=== PATIENT | male | born 1960 | race African-American/Black ===

== ENCOUNTER 2021-11-08 10:44 | Observation (INO) | payer OTHER ==
[2021-11-08 10:58] VITALS: BMI 28.1
[2021-11-08] MEDS ORDERED: LABETALOL HCL 5 MG/1 ML (100MG/20 ML VIAL) IVPUSH ONE ×2 (11:18→12:00)
[2021-11-08 12:08] LABS: BASO % 0.8 % (0-2.0); EOS % 1.7 % (0-4.5); HEMATOCRIT 40.5 % (35.4-49); HEMOGLOBIN 14.2 GM/dL (11.7-16.9); LYMPH % 23.9 % (8-40); MCH 35.5 pg (25.7-33.7); MCHC 35.1 g/dl (32.0-35.9); MEAN CELL VOLUME 101.3 fl (80-96); MEAN PLT VOLUME 7.7 fl (7.5-11.1); MONO % 12.1 % (3.8-10.2); NEUT % 61.5 % (42.8-82.8); PLATELET COUNT 245 10^3/uL (134-434); RDW 13.8 % (11.9-15.9); WHITE BLOOD COUNT 4.2 K/mm3 (4.0-10.0)
[2021-11-08 12:10] LABS: PH,URINE 6.5 (5.0-8.0); URINE APPEARANCE CLEAR; URINE BILIRUBIN NEGATIVE (NEGATIVE); URINE COLOR YELLOW; URINE GLUCOSE (UA) NEGATIVE (NEGATIVE); URINE KETONE NEGATIVE (NEGATIVE); URINE LEUK ESTERASE NEGATIVE (NEGATIVE); URINE NITRITE NEGATIVE (NEGATIVE); URINE PROTEIN NEGATIVE (NEGATIVE); URINE UROBILINOGEN 0.2 mg/dL (0.2-1.0)
[2021-11-08 12:38] LABS: CALCIUM 9.3 mg/dL (8.5-10.1)
[2021-11-08 12:39] LABS: BLOOD UREA NITROGEN 10.5 mg/dL (7-18); MAGNESIUM 1.8 mg/dL (1.8-2.4)
[2021-11-08 12:42] LABS: CREATININE 1.2 mg/dL (0.55-1.3)
[2021-11-08 12:43] LABS: BILIRUBIN,TOTAL 1.2 mg/dL (0.2-1)
[2021-11-08 12:44] LABS: TOT PROT 8.2 g/dl (6.4-8.2)
[2021-11-08] MEDS ORDERED: POTASSIUM CHLORIDE TABS 20 MEQ TABLET.ER (FP) PO ONE ×2 (13:03→13:10)
[2021-11-08] MEDS ORDERED: guaiFENesin 200 MG/10 ML 10 ML UNIT-DOSE CUPS PO PRN (17:41)
[2021-11-08] MEDS: SODIUM CHLORIDE 1,000 ML IV SCH (18:51)
[2021-11-09] MEDS: SODIUM CHLORIDE 1,000 ML IV SCH (06:21)
[2021-11-09 08:29] LABS: HEMATOCRIT 41.9 % (35.4-49); HEMOGLOBIN 14.3 GM/dL (11.7-16.9); MCH 34.9 pg (25.7-33.7); MEAN CELL VOLUME 102.6 fl (80-96); MEAN PLT VOLUME 8.3 fl (7.5-11.1); PLATELET COUNT 235 10^3/uL (134-434); RBC 4.09 M/mm3 (4.00-5.60); RDW 14.3 % (11.9-15.9); WHITE BLOOD COUNT 5.7 K/mm3 (4.0-10.0)
[2021-11-09 09:04] LABS: ALBUMIN 3.6 g/dl (3.4-5.0); BLOOD UREA NITROGEN 13.1 mg/dL (7-18)
[2021-11-09 09:05] LABS: MAGNESIUM 2.1 mg/dL (1.8-2.4)
[2021-11-09 09:09] LABS: TOT PROT 7.7 g/dl (6.4-8.2)
[2021-11-09] MEDS: ENOXAPARIN NA (PORCINE) 40 MG/0.4 ML DISP.SYRIN SQ SCH (09:40)
[2021-11-09] MEDS: amLODIPine BESYLATE 5 MG TABLET (FP) PO SCH (09:41)
[2021-11-09] MEDS: FOLIC ACID 1 MG TABLET (FP) PO SCH (09:41)
[2021-11-09] MEDS: THIAMINE HCL 100 MG TABLET (FP) PO SCH (09:41)
[2021-11-09] MEDS: BICTEGRAV/EMTRICIT/TENOFOV (BIKTARVY) 50-200-25 MG TABLET PO SCH (11:11)
[2021-11-09] MEDS: KCL 10 MEQ IVPB 10 MEQ/100 ML INFUS.BAG IVPB SCH ×2 (12:15→13:53)
[2021-11-09] MEDS: LOSARTAN POTASSIUM 50 MG TABLET PO SCH (12:15)
[2021-11-09 18:58] LABS: BLOOD UREA NITROGEN 14.4 mg/dL (7-18); CALCIUM 8.8 mg/dL (8.5-10.1)
[2021-11-09 19:02] LABS: CREATININE 1.1 mg/dL (0.55-1.3)
[2021-11-09] MEDS ORDERED: amLODIPine BESYLATE 5 MG TABLET (FP) PO ONE (23:25)
[2021-11-10] MEDS ORDERED: LOSARTAN POTASSIUM 25 MG TABLET PO ONE ×2 (06:24→12:00)
[2021-11-10 07:34] LABS: HEMATOCRIT 40.1 % (35.4-49); HEMOGLOBIN 13.9 GM/dL (11.7-16.9); MCH 35.7 pg (25.7-33.7); MCHC 34.6 g/dl (32.0-35.9); MEAN PLT VOLUME 7.9 fl (7.5-11.1); PLATELET COUNT 204 10^3/uL (134-434); RDW 13.7 % (11.9-15.9); WHITE BLOOD COUNT 4.3 K/mm3 (4.0-10.0)
[2021-11-10 07:37] LABS: ALBUMIN 3.6 g/dl (3.4-5.0); BLOOD UREA NITROGEN 12.8 mg/dL (7-18)
[2021-11-10 07:42] LABS: TOT PROT 7.4 g/dl (6.4-8.2)
[2021-11-10 07:46] LABS: BILIRUBIN,TOTAL 0.7 mg/dL (0.2-1)
[2021-11-10] MEDS: THIAMINE HCL 100 MG TABLET (FP) PO SCH (09:18)
[2021-11-10] MEDS: LOSARTAN POTASSIUM 50 MG TABLET PO SCH (09:19)
[2021-11-10] MEDS: FOLIC ACID 1 MG TABLET (FP) PO SCH (09:20)
[2021-11-10] MEDS: ENOXAPARIN NA (PORCINE) 40 MG/0.4 ML DISP.SYRIN SQ SCH (09:20)
[2021-11-10] MEDS: BICTEGRAV/EMTRICIT/TENOFOV (BIKTARVY) 50-200-25 MG TABLET PO SCH (09:20)
[2021-11-10] MEDS: amLODIPine BESYLATE 5 MG TABLET (FP) PO SCH (09:20)
[2021-11-10] MEDS: hydrALAZINE HCL 10 MG TABLET PO SCH ×2 (16:05→21:17)
[2021-11-11] MEDS: hydrALAZINE HCL 10 MG TABLET PO SCH ×2 (05:56→14:47)
[2021-11-11] MEDS: BICTEGRAV/EMTRICIT/TENOFOV (BIKTARVY) 50-200-25 MG TABLET PO SCH (10:20)
[2021-11-11] MEDS: THIAMINE HCL 100 MG TABLET (FP) PO SCH (10:21)
[2021-11-11] MEDS: amLODIPine BESYLATE 5 MG TABLET (FP) PO SCH (10:21)
[2021-11-11] MEDS: LOSARTAN POTASSIUM 50 MG TABLET PO SCH (10:21)
[2021-11-11] MEDS: FOLIC ACID 1 MG TABLET (FP) PO SCH (10:21)
[2021-11-11] MEDS: ENOXAPARIN NA (PORCINE) 40 MG/0.4 ML DISP.SYRIN SQ SCH (10:21)
[2021-11-11 10:33] LABS: HEMATOCRIT 41.2 % (35.4-49); HEMOGLOBIN 14.2 GM/dL (11.7-16.9); MCH 35.3 pg (25.7-33.7); MCHC 34.4 g/dl (32.0-35.9); MEAN CELL VOLUME 102.7 fl (80-96); MEAN PLT VOLUME 8.3 fl (7.5-11.1); PLATELET COUNT 216 10^3/uL (134-434); RBC 4.01 M/mm3 (4.00-5.60); WHITE BLOOD COUNT 4.4 K/mm3 (4.0-10.0)
[2021-11-11 10:55] LABS: CALCIUM 9.5 mg/dL (8.5-10.1)
[2021-11-11 10:56] LABS: ALBUMIN 3.8 g/dl (3.4-5.0); BLOOD UREA NITROGEN 12.7 mg/dL (7-18); MAGNESIUM 2.3 mg/dL (1.8-2.4)
[2021-11-11 10:59] LABS: CREATININE 0.9 mg/dL (0.55-1.3)
[2021-11-11 11:00] LABS: TOT PROT 7.7 g/dl (6.4-8.2)
[2021-11-11 11:01] LABS: BILIRUBIN,TOTAL 0.6 mg/dL (0.2-1)
[2021-11-11] MEDS ORDERED: hydrALAZINE HCL 25 MG TABLET (FP) PO ONE (14:47)
[2021-11-11] MEDS ORDERED: hydrALAZINE HCL 25 MG TABLET (FP) PO SCH (14:47)
[2021-11-11] MEDS: hydrALAZINE HCL 50 MG TABLET (FP) PO SCH (21:17)
[2021-11-12] MEDS: hydrALAZINE HCL 50 MG TABLET (FP) PO SCH ×2 (05:49→13:33)
[2021-11-12 08:53] LABS: HEMATOCRIT 42.6 % (35.4-49); HEMOGLOBIN 14.7 GM/dL (11.7-16.9); MCH 35.7 pg (25.7-33.7); MCHC 34.6 g/dl (32.0-35.9); MEAN CELL VOLUME 103.1 fl (80-96); MEAN PLT VOLUME 8.7 fl (7.5-11.1); PLATELET COUNT 257 10^3/uL (134-434); RBC 4.13 M/mm3 (4.00-5.60); WHITE BLOOD COUNT 5.1 K/mm3 (4.0-10.0)
[2021-11-12 09:10] LABS: CALCIUM 9.2 mg/dL (8.5-10.1)
[2021-11-12 09:11] LABS: ALBUMIN 3.9 g/dl (3.4-5.0); BLOOD UREA NITROGEN 16.9 mg/dL (7-18)
[2021-11-12 09:16] LABS: BILIRUBIN,TOTAL 0.4 mg/dL (0.2-1)
[2021-11-12] MEDS: LOSARTAN POTASSIUM 50 MG TABLET PO SCH (10:35)
[2021-11-12] MEDS: THIAMINE HCL 100 MG TABLET (FP) PO SCH (10:35)
[2021-11-12] MEDS: FOLIC ACID 1 MG TABLET (FP) PO SCH (10:35)
[2021-11-12] MEDS: ENOXAPARIN NA (PORCINE) 40 MG/0.4 ML DISP.SYRIN SQ SCH (10:35)
[2021-11-12] MEDS: BICTEGRAV/EMTRICIT/TENOFOV (BIKTARVY) 50-200-25 MG TABLET PO SCH (10:36)
[2021-11-12] MEDS ORDERED: BISACODYL 5 MG TABLET.DR (FP) PO ONE (14:59)
[2021-11-12 15:07] VITALS: BP 162/101; PULSE 76; TEMP 98.6
[2021-11-12] MEDS ORDERED: BISACODYL 10 MG SUPP.RECT PR ONE (15:12)
== END 2021-11-12 16:48 | disposition home or self-care (01) ==
LOC: JER 10:44 → JERBED 15:30 → J6S 22:17
PROVIDERS: ADMIT Internal Medicine; ATTEND Internal Medicine
PROC: 3E023GC Introduction of Other Therapeutic Substance into Muscle, Percutaneous Approach (ICD-10-PCS; principal; 2021-11-08)
PROC: 3E033GC Introduction of Other Therapeutic Substance into Peripheral Vein, Percutaneous Approach (ICD-10-PCS; 2021-11-08)
PROC: 3E0337Z Introduction of Electrolytic and Water Balance Substance into Peripheral Vein, Percutaneous Approach (ICD-10-PCS; 2021-11-08)
DX: I16.0 Hypertensive urgency (principal); R42 Dizziness and giddiness; E87.6 Hypokalemia; F20.9 Schizophrenia, unspecified; Z21 Asymptomatic human immunodeficiency virus [HIV] infection status; E87.1 Hypo-osmolality and hyponatremia; Z93.3 Colostomy status; Z85.038 Personal history of other malignant neoplasm of large intestine; F17.210 Nicotine dependence, cigarettes, uncomplicated
CPT/HCPCS: 36415; 70450-TC; 71045-TC-FY; 71275-TC; 80048; 80053; 81003; 83735; 84484; 85025; 85027; 87804; 93005; 93010; 96361; 96365; 96372; 96375; 96376; 97116-GP; 97161-GP; 99285-25; C9803-CS; G0378; Q9967; U0003; U0005

== ENCOUNTER 2023-06-01 02:25 | Inpatient (IN) | payer OTHER ==
[2023-06-01] MEDS ORDERED: PIPERACILLIN/TAZOB 3.375 GM 3.375 GM in DEXTROSE 5%-WATER - 50 ML IVPB ONE (03:07)
[2023-06-01] MEDS ORDERED: VANCOMYCIN 1,000 MG in DEXTROSE 5%-WATER - 250 ML IVPB ONE (03:07)
[2023-06-01] MEDS ORDERED: SODIUM CHLORIDE 1,000 ML IV STA (03:15)
[2023-06-01] MEDS ORDERED: PIPERACILLIN/TAZOB 3.375 GM 3.375 GM/50 ML BAG IVPB ONE ×3 (03:41→16:49)
[2023-06-01] MEDS ORDERED: VANCOMYCIN 1 GRAM (PRE-DOCKED) 1,000 MG/250 ML BAG IVPB ONE (03:41)
[2023-06-01 03:42] LABS: BASO % 0.3 % (0-2.0); EOS % 0.1 % (0-4.5); HEMATOCRIT 38.1 % (35.4-49); LYMPH % 6.4 % (8-40); MCH 33.7 pg (25.7-33.7); MCHC 34.2 g/dl (32.0-35.9); MEAN CELL VOLUME 98.5 fl (80-96); MEAN PLT VOLUME 7.3 fl (7.5-11.1); MONO % 4.3 % (3.8-10.2); NEUT % 88.9 % (42.8-82.8); PLATELET COUNT 441 10^3/uL (134-434); RBC 3.87 M/mm3 (4.00-5.60); RDW 15.1 % (11.9-15.9)
[2023-06-01 04:15] LABS: INR 1.21 (0.83-1.09)
[2023-06-01 04:18] LABS: ACTIVATED PTT 28.1 SECONDS (25.2-36.5)
[2023-06-01 04:19] LABS: CALCIUM 8.8 mg/dL (8.5-10.1)
[2023-06-01 04:20] LABS: ALBUMIN 3.3 g/dl (3.4-5.0); BLOOD UREA NITROGEN 15.3 mg/dL (7-18)
[2023-06-01 04:23] LABS: CREATININE 0.9 mg/dL (0.55-1.3)
[2023-06-01 04:25] LABS: BILIRUBIN,TOTAL 0.2 mg/dL (0.2-1); TOT PROT 8.2 g/dl (6.4-8.2)
[2023-06-01 04:26] LABS: EPI CELLS 28 /uL (0-25.1); HYALINE CASTS 2 /uL (0-3.1); PH,URINE 5.5 (5.0-8.0); URINE APPEARANCE CLEAR; URINE BACTERIA 9 /uL (0-1359); URINE BILIRUBIN NEGATIVE (NEGATIVE); URINE COLOR DK YELLOW; URINE GLUCOSE (UA) NEGATIVE (NEGATIVE); URINE KETONE NEGATIVE (NEGATIVE); URINE LEUK ESTERASE NEGATIVE (NEGATIVE); URINE NITRITE NEGATIVE (NEGATIVE); URINE PROTEIN NEGATIVE (NEGATIVE); URINE RBC 147 /uL (0-23.9); URINE WBC 19 /uL (0-25.8)
[2023-06-01 05:20] LABS: ARTERIAL BLOOD GAS BASE EXCESS 2.1 mmol/L (-2-2); ARTERIAL BLOOD GAS PO2 160.8 mmHg (80-100); ARTERIAL BLOOD GAS pH 7.395 (7.350-7.450)
[2023-06-01] MEDS ORDERED: ALBUTEROL SO4 2.5/IPRATROPIUM 0.5 INH SOL 3 ML VIAL.NEB. NEB PRN (08:12)
[2023-06-01] MEDS ORDERED: PIPERACILLIN/TAZOB 3.375 GM 3.375 GM in DEXTROSE 5%-WATER - 50 ML IVPB SCH (10:00)
[2023-06-01] MEDS ORDERED: SODIUM CHLORIDE 1,000 ML IV SCH (10:30)
[2023-06-01] MEDS: PIPERACILLIN/TAZOB 3.375 GM 3.375 GM in DEXTROSE 5%-WATER - 50 ML IVPB SCH ×3 (10:55→19:49)
[2023-06-01] MEDS: INSULIN SLIDING SCALE (NOVOLOG) 1 VIAL SQ SCH ×3 (12:38→22:21)
[2023-06-01] MEDS ORDERED: DEXTROSE 5%-NORMAL SALINE 1,000 ML IV SCH (18:15)
[2023-06-01] MEDS ORDERED: ENOXAPARIN NA (PORCINE) 40 MG/0.4 ML DISP.SYRIN SQ ONE (18:17)
[2023-06-01] MEDS: ENOXAPARIN NA (PORCINE) 40 MG/0.4 ML DISP.SYRIN SQ SCH (18:20)
[2023-06-02] MEDS ORDERED: PIPERACILLIN/TAZOB 3.375 GM 3.375 GM/50 ML BAG IVPB ONE ×2 (00:41→09:41)
[2023-06-02] MEDS: PIPERACILLIN/TAZOB 3.375 GM 3.375 GM in DEXTROSE 5%-WATER - 50 ML IVPB SCH ×3 (01:27→20:08)
[2023-06-02 06:44] LABS: BASO % 0.8 % (0-2.0); EOS % 3.4 % (0-4.5); HEMATOCRIT 29.4 % (35.4-49); HEMOGLOBIN 9.9 GM/dL (11.7-16.9); LYMPH % 24.5 % (8-40); MCH 33.8 pg (25.7-33.7); MCHC 33.5 g/dl (32.0-35.9); MEAN PLT VOLUME 7.7 fl (7.5-11.1); MONO % 10.8 % (3.8-10.2); NEUT % 60.5 % (42.8-82.8); PLATELET COUNT 398 10^3/uL (134-434); RBC 2.91 M/mm3 (4.00-5.60); RDW 14.7 % (11.9-15.9); WHITE BLOOD COUNT 7.4 K/mm3 (4.0-10.0)
[2023-06-02] MEDS: INSULIN SLIDING SCALE (NOVOLOG) 1 VIAL SQ SCH ×4 (06:52→22:56)
[2023-06-02] MEDS ORDERED: BICTEGRAV/EMTRICIT/TENOFOV (BIKTARVY) 50-200-25 MG TABLET PO SCH (08:00)
[2023-06-02] MEDS: ENOXAPARIN NA (PORCINE) 40 MG/0.4 ML DISP.SYRIN SQ SCH (09:06)
[2023-06-02] MEDS ORDERED: ALBUTEROL SO4 2.5/IPRATROPIUM 0.5 INH SOL 3 ML VIAL.NEB. NEB ONE ×2 (09:07→14:18)
[2023-06-02] MEDS ORDERED: THIAMINE HCL 100 MG TABLET (FP) ONE (09:07)
[2023-06-02] MEDS ORDERED: FOLIC ACID 1 MG TABLET (FP) ONE (09:07)
[2023-06-02] MEDS: ALBUTEROL SO4 2.5/IPRATROPIUM 0.5 INH SOL 3 ML VIAL.NEB. NEB SCH ×3 (09:15→20:50)
[2023-06-02] MEDS ORDERED: FOLIC ACID 1 MG TABLET (FP) PO SCH (10:00)
[2023-06-02] MEDS ORDERED: THIAMINE HCL 100 MG TABLET (FP) PO SCH (10:00)
[2023-06-02] MEDS ORDERED: ACETAMINOPHEN 1000 MG/100 ML BAG IVPB PRN (10:28)
[2023-06-02] MEDS ORDERED: levETIRAcetam 500 MG/5 ML INJECTION VIAL IVPB ONE (10:44)
[2023-06-02] MEDS: levETIRAcetam 500 MG/5 ML INJECTION VIAL IVPB SCH ×2 (10:51→22:53)
[2023-06-02] MEDS ORDERED: DIVALPROEX SODIUM 500 MG TABLET E.C. PO SCH (11:00)
[2023-06-02] MEDS ORDERED: VALPROATE SODIUM 250 MG/5 ML UNIT DOSE CUP PO SCH (11:23)
[2023-06-02] MEDS ORDERED: PANTOPRAZOLE SODIUM 40 MG VIAL ONE (11:26)
[2023-06-02] MEDS: BICTEGRAV/EMTRICIT/TENOFOV (BIKTARVY) 50-200-25 MG TABLET PO SCH (11:28)
[2023-06-02] MEDS ORDERED: clonazePAM 0.5 MG TABLET ONE (11:29)
[2023-06-02] MEDS: clonazePAM 0.5 MG TABLET GT SCH ×2 (11:41→22:53)
[2023-06-02] MEDS: SODIUM CHLORIDE 1 GM TABLET GT SCH (11:41)
[2023-06-02] MEDS: PANTOPRAZOLE SODIUM 40 MG VIAL IVPUSH SCH (11:41)
[2023-06-02] MEDS: METOPROLOL TARTRATE 25 MG TABLET (FP) GT SCH ×2 (11:41→22:54)
[2023-06-02] MEDS: ARTIFICIAL TEARS (POLYVINYL ALCOHOL) OPTH DROPS OU SCH ×2 (11:42→22:56)
[2023-06-02] MEDS: DOXAZOSIN MESYLATE 1 MG TABLET GT SCH (11:42)
[2023-06-02] MEDS ORDERED: hydrALAZINE HCL 25 MG TABLET (FP) PO SCH (14:00)
[2023-06-02] MEDS ORDERED: ACETAMINOPHEN INJECTION 100 ML IVPB ONE (16:07)
[2023-06-02 18:08] VITALS: BMI 28.5
[2023-06-02] MEDS: VALPROATE SODIUM 250 MG/5 ML UNIT DOSE CUP GT SCH (22:52)
[2023-06-02] MEDS: POLYETHYLENE GLYCOL (HEALTHYLAX) 3350 17 GM PACKET GT SCH (22:54)
[2023-06-03] MEDS: PIPERACILLIN/TAZOB 3.375 GM 3.375 GM in DEXTROSE 5%-WATER - 50 ML IVPB SCH ×3 (01:45→17:33)
[2023-06-03] MEDS: ALBUTEROL SO4 2.5/IPRATROPIUM 0.5 INH SOL 3 ML VIAL.NEB. NEB SCH ×6 (03:29→20:46)
[2023-06-03] MEDS: INSULIN SLIDING SCALE (NOVOLOG) 1 VIAL SQ SCH ×4 (06:35→22:02)
[2023-06-03 09:39] LABS: BASO % 0.8 % (0-2.0); EOS % 4.3 % (0-4.5); HEMOGLOBIN 10.3 GM/dL (11.7-16.9); LYMPH % 31.1 % (8-40); MCH 33.4 pg (25.7-33.7); MCHC 33.3 g/dl (32.0-35.9); MEAN CELL VOLUME 100.2 fl (80-96); MEAN PLT VOLUME 7.8 fl (7.5-11.1); MONO % 10.1 % (3.8-10.2); NEUT % 53.7 % (42.8-82.8); PLATELET COUNT 409 10^3/uL (134-434); RDW 14.5 % (11.9-15.9); WHITE BLOOD COUNT 6.1 K/mm3 (4.0-10.0)
[2023-06-03 10:08] LABS: POTASSIUM 4.1 mmol/L (3.5-5.1)
[2023-06-03 10:14] LABS: BLOOD UREA NITROGEN 11.1 mg/dL (7-18)
[2023-06-03 10:17] LABS: CALCIUM 8.5 mg/dL (8.5-10.1); CREATININE 0.9 mg/dL (0.55-1.3); MAGNESIUM 1.9 mg/dL (1.8-2.4); PHOSPHOROUS 3.8 mg/dL (2.5-4.9)
[2023-06-03] MEDS: PANTOPRAZOLE SODIUM 40 MG VIAL IVPUSH SCH (10:17)
[2023-06-03] MEDS: ENOXAPARIN NA (PORCINE) 40 MG/0.4 ML DISP.SYRIN SQ SCH (10:17)
[2023-06-03] MEDS: BICTEGRAV/EMTRICIT/TENOFOV (BIKTARVY) 50-200-25 MG TABLET PO SCH (10:17)
[2023-06-03] MEDS: FOLIC ACID 1 MG TABLET (FP) GT SCH (10:18)
[2023-06-03] MEDS: THIAMINE HCL 100 MG TABLET (FP) NGT SCH (10:18)
[2023-06-03] MEDS: METOPROLOL TARTRATE 25 MG TABLET (FP) GT SCH ×2 (10:18→22:18)
[2023-06-03] MEDS: clonazePAM 0.5 MG TABLET GT SCH ×2 (10:18→22:02)
[2023-06-03 10:19] LABS: BILIRUBIN,TOTAL 0.7 mg/dL (0.2-1)
[2023-06-03] MEDS: VALPROATE SODIUM 250 MG/5 ML UNIT DOSE CUP GT SCH ×2 (10:19→22:18)
[2023-06-03] MEDS: levETIRAcetam 500 MG/5 ML INJECTION VIAL IVPB SCH ×2 (10:19→22:01)
[2023-06-03] MEDS: SODIUM CHLORIDE 1 GM TABLET GT SCH (10:20)
[2023-06-03] MEDS: ARTIFICIAL TEARS (POLYVINYL ALCOHOL) OPTH DROPS OU SCH ×2 (10:20→21:59)
[2023-06-03 10:21] LABS: TOT PROT 7.4 g/dl (6.4-8.2)
[2023-06-03] MEDS: DOXAZOSIN MESYLATE 1 MG TABLET GT SCH (10:21)
[2023-06-03] MEDS: AMINO ACIDS/PROTEIN HYDROLYS 30 ML LIQUID.PKT GT SCH (17:33)
[2023-06-03] MEDS: POLYETHYLENE GLYCOL (HEALTHYLAX) 3350 17 GM PACKET GT SCH (22:02)
[2023-06-04] MEDS: PIPERACILLIN/TAZOB 3.375 GM 3.375 GM in DEXTROSE 5%-WATER - 50 ML IVPB SCH ×2 (01:23→12:51)
[2023-06-04] MEDS: INSULIN SLIDING SCALE (NOVOLOG) 1 VIAL SQ SCH ×2 (06:23→13:39)
[2023-06-04] MEDS: ALBUTEROL SO4 2.5/IPRATROPIUM 0.5 INH SOL 3 ML VIAL.NEB. NEB SCH ×4 (08:20→20:02)
[2023-06-04 09:22] LABS: BASO % 0.7 % (0-2.0); EOS % 7.6 % (0-4.5); HEMATOCRIT 27.6 % (35.4-49); HEMOGLOBIN 9.6 GM/dL (11.7-16.9); LYMPH % 31.3 % (8-40); MCH 34.3 pg (25.7-33.7); MCHC 34.7 g/dl (32.0-35.9); MEAN CELL VOLUME 98.8 fl (80-96); MEAN PLT VOLUME 7.5 fl (7.5-11.1); NEUT % 47.4 % (42.8-82.8); PLATELET COUNT 350 10^3/uL (134-434); RBC 2.79 M/mm3 (4.00-5.60); RDW 14.7 % (11.9-15.9); WHITE BLOOD COUNT 5.5 K/mm3 (4.0-10.0)
[2023-06-04 09:37] LABS: POTASSIUM 4.3 mmol/L (3.5-5.1)
[2023-06-04 10:12] LABS: ALBUMIN 2.8 g/dl (3.4-5.0); CALCIUM 8.5 mg/dL (8.5-10.1); MAGNESIUM 2.2 mg/dL (1.8-2.4)
[2023-06-04 10:13] LABS: BLOOD UREA NITROGEN 11.4 mg/dL (7-18)
[2023-06-04] MEDS: AMINO ACIDS/PROTEIN HYDROLYS 30 ML LIQUID.PKT GT SCH ×3 (10:13→17:46)
[2023-06-04] MEDS: ARTIFICIAL TEARS (POLYVINYL ALCOHOL) OPTH DROPS OU SCH ×2 (10:14→22:42)
[2023-06-04] MEDS: BICTEGRAV/EMTRICIT/TENOFOV (BIKTARVY) 50-200-25 MG TABLET PO SCH (10:14)
[2023-06-04] MEDS: DOXAZOSIN MESYLATE 1 MG TABLET GT SCH (10:14)
[2023-06-04 10:15] LABS: CREATININE 0.8 mg/dL (0.55-1.3); PHOSPHOROUS 3.7 mg/dL (2.5-4.9)
[2023-06-04] MEDS: MULTIVIT-MINERALS ORAL LIQUID GT SCH (10:15)
[2023-06-04] MEDS: ENOXAPARIN NA (PORCINE) 40 MG/0.4 ML DISP.SYRIN SQ SCH (10:15)
[2023-06-04] MEDS: PANTOPRAZOLE SODIUM 40 MG VIAL IVPUSH SCH (10:15)
[2023-06-04 10:16] LABS: BILIRUBIN,TOTAL 0.3 mg/dL (0.2-1); TOT PROT 7.1 g/dl (6.4-8.2)
[2023-06-04] MEDS: levETIRAcetam 500 MG/5 ML INJECTION VIAL IVPB SCH (10:16)
[2023-06-04] MEDS: SODIUM CHLORIDE 1 GM TABLET GT SCH (10:16)
[2023-06-04] MEDS: clonazePAM 0.5 MG TABLET GT SCH ×2 (10:16→22:44)
[2023-06-04] MEDS: ASCORBIC ACID 250 MG TABLET (FP) GT SCH (10:17)
[2023-06-04] MEDS: THIAMINE HCL 100 MG TABLET (FP) NGT SCH (10:17)
[2023-06-04] MEDS: METOPROLOL TARTRATE 25 MG TABLET (FP) GT SCH ×2 (10:17→22:45)
[2023-06-04] MEDS: FOLIC ACID 1 MG TABLET (FP) GT SCH (10:17)
[2023-06-04] MEDS ORDERED: CEFEPIME HCL 2 GM VIAL (RESTRICTED TO ID) IVPB SCH ×2 (12:27→18:00)
[2023-06-04] MEDS: VALPROATE SODIUM 250 MG/5 ML UNIT DOSE CUP GT SCH ×2 (12:53→22:44)
[2023-06-04] MEDS: CEFEPIME 2 GM in DEXTROSE 5%-WATER 100 ML IVPB SCH ×2 (13:08→17:46)
[2023-06-04] MEDS ORDERED: PATIENT'S OWN MEDICATION (NON-FORMULARY) (Dextran 70/Hypromellose [Artificial Tears] 1 EAC OU SCH (22:00)
[2023-06-04] MEDS ORDERED: PATIENT'S OWN MEDICATION (NON-FORMULARY) (Valproic Acid (As Sodium Salt) [Valproic Acid] 5 PEG SCH (22:00)
[2023-06-04] MEDS: levETIRAcetam 500 MG/5 ML ORAL SOLUTION (UNIT-DOSE CUPS) GT SCH (22:43)
[2023-06-04] MEDS: POLYETHYLENE GLYCOL (HEALTHYLAX) 3350 17 GM PACKET GT SCH (22:44)
[2023-06-05] MEDS: CEFEPIME 2 GM in DEXTROSE 5%-WATER 100 ML IVPB SCH ×2 (01:31→10:25)
[2023-06-05] MEDS: AMINO ACIDS/PROTEIN HYDROLYS 30 ML LIQUID.PKT GT SCH ×3 (08:35→17:16)
[2023-06-05] MEDS: BICTEGRAV/EMTRICIT/TENOFOV (BIKTARVY) 50-200-25 MG TABLET PO SCH (08:35)
[2023-06-05] MEDS: ALBUTEROL SO4 2.5/IPRATROPIUM 0.5 INH SOL 3 ML VIAL.NEB. NEB SCH ×4 (08:45→20:45)
[2023-06-05] MEDS: clonazePAM 0.5 MG TABLET GT SCH ×2 (10:20→22:01)
[2023-06-05] MEDS: SODIUM CHLORIDE 1 GM TABLET GT SCH (10:20)
[2023-06-05] MEDS: levETIRAcetam 500 MG/5 ML ORAL SOLUTION (UNIT-DOSE CUPS) GT SCH ×2 (10:20→21:59)
[2023-06-05] MEDS: ASCORBIC ACID 250 MG TABLET (FP) GT SCH (10:21)
[2023-06-05] MEDS: FOLIC ACID 1 MG TABLET (FP) GT SCH (10:21)
[2023-06-05] MEDS: VALPROATE SODIUM 250 MG/5 ML UNIT DOSE CUP GT SCH ×2 (10:21→21:59)
[2023-06-05] MEDS: METOPROLOL TARTRATE 25 MG TABLET (FP) GT SCH ×2 (10:21→21:59)
[2023-06-05] MEDS: ENOXAPARIN NA (PORCINE) 40 MG/0.4 ML DISP.SYRIN SQ SCH (10:21)
[2023-06-05] MEDS: PANTOPRAZOLE SODIUM 40 MG VIAL IVPUSH SCH (10:21)
[2023-06-05] MEDS: ARTIFICIAL TEARS (POLYVINYL ALCOHOL) OPTH DROPS OU SCH ×2 (10:22→21:59)
[2023-06-05] MEDS: amLODIPine BESYLATE 5 MG TABLET (FP) GT SCH (10:22)
[2023-06-05] MEDS: MULTIVIT-MINERALS ORAL LIQUID GT SCH (10:23)
[2023-06-05] MEDS: THIAMINE HCL 100 MG TABLET (FP) NGT SCH (10:24)
[2023-06-05] MEDS: POLYETHYLENE GLYCOL (HEALTHYLAX) 3350 17 GM PACKET GT SCH (21:59)
[2023-06-06] MEDS ORDERED: levoFLOXacin 750 MG TABLET GT SCH (06:00)
[2023-06-06] MEDS: ALBUTEROL SO4 2.5/IPRATROPIUM 0.5 INH SOL 3 ML VIAL.NEB. NEB SCH ×3 (07:51→15:00)
[2023-06-06] MEDS: AMINO ACIDS/PROTEIN HYDROLYS 30 ML LIQUID.PKT GT SCH ×2 (09:15→12:08)
[2023-06-06] MEDS: BICTEGRAV/EMTRICIT/TENOFOV (BIKTARVY) 50-200-25 MG TABLET PO SCH (09:15)
[2023-06-06] MEDS: amLODIPine BESYLATE 5 MG TABLET (FP) GT SCH (11:12)
[2023-06-06] MEDS: SODIUM CHLORIDE 1 GM TABLET GT SCH (11:12)
[2023-06-06] MEDS: THIAMINE HCL 100 MG TABLET (FP) NGT SCH (11:12)
[2023-06-06] MEDS: FOLIC ACID 1 MG TABLET (FP) GT SCH (11:12)
[2023-06-06] MEDS: METOPROLOL TARTRATE 25 MG TABLET (FP) GT SCH (11:13)
[2023-06-06] MEDS: clonazePAM 0.5 MG TABLET GT SCH (11:13)
[2023-06-06] MEDS: ASCORBIC ACID 250 MG TABLET (FP) GT SCH (11:13)
[2023-06-06] MEDS: MULTIVIT-MINERALS ORAL LIQUID GT SCH (11:14)
[2023-06-06] MEDS: ARTIFICIAL TEARS (POLYVINYL ALCOHOL) OPTH DROPS OU SCH (11:18)
[2023-06-06] MEDS: VALPROATE SODIUM 250 MG/5 ML UNIT DOSE CUP GT SCH (11:22)
[2023-06-06] MEDS: ENOXAPARIN NA (PORCINE) 40 MG/0.4 ML DISP.SYRIN SQ SCH (11:23)
[2023-06-06] MEDS: levETIRAcetam 500 MG/5 ML ORAL SOLUTION (UNIT-DOSE CUPS) GT SCH (11:23)
[2023-06-06] MEDS: PANTOPRAZOLE SODIUM 40 MG VIAL IVPUSH SCH (11:24)
[2023-06-06 14:02] VITALS: RESP 20
[2023-06-06 16:56] VITALS: BP 130/77; PULSE 92; TEMP 98.6
== END 2023-06-06 17:03 | DRG 720 ==
LOC: JER 02:25 → UNDOADMOB 06:08 → JERBED 06:08 → OBSVTOIN 12:04 → INTOOBSV 12:04 → J5S 06-02 17:31 → JERBED 06-02 17:31 → OBSVTOIN 06-03 12:04 → JERBED 06-03 12:04 → J5S 06-03 12:04
PROVIDERS: ADMIT Student in an Organized Health Care Education/Training Program; ATTEND Internal Medicine
PROC: 5A1945Z Respiratory Ventilation, 24-96 Consecutive Hours (ICD-10-PCS; principal; 2023-06-01)
DX: A41.89 Other specified sepsis (principal); J18.9 Pneumonia, unspecified organism; J96.21 Acute and chronic respiratory failure with hypoxia; G40.909 Epilepsy, unspecified, not intractable, without status epilepticus; E11.9 Type 2 diabetes mellitus without complications; N17.9 Acute kidney failure, unspecified; K21.9 Gastro-esophageal reflux disease without esophagitis; J44.9 Chronic obstructive pulmonary disease, unspecified; Z21 Asymptomatic human immunodeficiency virus [HIV] infection status; J44.0 Chronic obstructive pulmonary disease with (acute) lower respiratory infection; F20.89 Other schizophrenia; J98.11 Atelectasis; N41.0 Acute prostatitis; B18.2 Chronic viral hepatitis C; E66.9 Obesity, unspecified; Z68.28 Body mass index [BMI] 28.0-28.9, adult; D72.829 Elevated white blood cell count, unspecified; E87.1 Hypo-osmolality and hyponatremia; F17.210 Nicotine dependence, cigarettes, uncomplicated; R31.29 Other microscopic hematuria; Z85.038 Personal history of other malignant neoplasm of large intestine
CPT/HCPCS: 0241U-QW; 36415; 36600; 71045-TC-FY; 71275-TC; 76775-TC; 80053; 80164; 81003; 82308; 82550; 82553; 82803; 82962; 83605; 83735; 83880; 84100; 84484; 85025; 85610; 85730; 86359; 86360; 86850; 86900; 86901; 87040; 87070; 87081; 87086; 87186; 87205; 87635; 87899; 93005; 93010; 93970-TC; 94002; 94640; 99285-25; Q9967

== ENCOUNTER 2023-06-21 11:44 | Emergency (ER) | payer OTHER ==
[2023-06-21 12:01] VITALS: BMI 23.1
[2023-06-21 12:49] LABS: VENOUS O2 SATURATION 53.1 % (70-80); VENOUS PCO2 56.7 mmHg (38-52); VENOUS PH 7.329 (7.310-7.410)
[2023-06-21 13:01] LABS: BASO % 0.2 % (0-2.0); EOS % 0.3 % (0-4.5); HEMOGLOBIN 11.5 GM/dL (11.7-16.9); LYMPH % 6.8 % (8-40); MCH 34.7 pg (25.7-33.7); MCHC 34.9 g/dl (32.0-35.9); MEAN CELL VOLUME 99.4 fl (80-96); MEAN PLT VOLUME 8.4 fl (7.5-11.1); MONO % 10.9 % (3.8-10.2); NEUT % 81.8 % (42.8-82.8); PLATELET COUNT 305 10^3/uL (134-434); RBC 3.32 M/mm3 (4.00-5.60); RDW 15.5 % (11.9-15.9)
[2023-06-21 13:13] LABS: ARTERIAL BLD GAS O2 SATURATION 99.1 % (95-98); ARTERIAL BLOOD GAS BASE EXCESS 1.7 mmol/L (-2-2); ARTERIAL BLOOD GAS PO2 161.1 mmHg (80-100)
[2023-06-21 13:14] LABS: VENT RATE N
[2023-06-21 13:16] LABS: INR 1.17 (0.83-1.09); PROTHROMBIN TIME (PATIENT) 13.5 SEC (9.7-13.0)
[2023-06-21 13:19] LABS: ACTIVATED PTT 28.4 SECONDS (25.2-36.5)
[2023-06-21 13:22] LABS: POTASSIUM 5.5 mmol/L (3.5-5.1)
[2023-06-21 13:24] LABS: ALBUMIN 3.3 g/dl (3.4-5.0); MAGNESIUM 2.3 mg/dL (1.8-2.4)
[2023-06-21 13:27] LABS: CREATININE 1.1 mg/dL (0.55-1.3)
[2023-06-21 13:28] LABS: BILIRUBIN,TOTAL 0.4 mg/dL (0.2-1); LACTIC ACID 2.2 mmol/L (0.4-2.0)
[2023-06-21 13:32] LABS: N-TERMINAL BNP 115.7 pg/ml (5-125)
[2023-06-21 13:40] LABS: URINE APPEARANCE CLEAR; URINE BILIRUBIN NEGATIVE (NEGATIVE); URINE COLOR YELLOW; URINE GLUCOSE (UA) NEGATIVE (NEGATIVE); URINE KETONE NEGATIVE (NEGATIVE); URINE LEUK ESTERASE NEGATIVE (NEGATIVE); URINE NITRITE NEGATIVE (NEGATIVE); URINE PROTEIN TRACE (NEGATIVE)
[2023-06-21] MEDS ORDERED: LACTATED RINGERS SOLUTION 1000 ML INFUS.BAG IV ONE (13:45)
[2023-06-21] MEDS ORDERED: SODIUM ZIRCONIUM CYCLOSILICATE (LOKELMA) 10 GM PACKET ONE (14:06)
[2023-06-21] MEDS ORDERED: SODIUM ZIRCONIUM CYCLOSILICATE (LOKELMA) 5 GM PACKET PO ONE (14:10)
[2023-06-21 18:18] VITALS: TEMP 98.2
[2023-06-22 01:58] VITALS: BP 116/82; PULSE 70; RESP 16
[2023-06-22] MEDS ORDERED: SODIUM ZIRCONIUM CYCLOSILICATE (LOKELMA) 5 GM PACKET PO ONE (14:00)
== END 2023-06-22 02:10 ==
LOC: JER 11:44
DX: R06.82 Tachypnea, not elsewhere classified (principal); R06.02 Shortness of breath; J95.00 Unspecified tracheostomy complication; Z20.822 Contact with and (suspected) exposure to COVID-19
CPT/HCPCS: 0241U-QW; 36415; 36600; 71045-TC-FY; 80053; 81003; 82803; 83605; 83735; 83880; 84484; 85025; 85610; 85730; 86850; 86900; 86901; 87040; 87070; 87086; 87186; 87205; 93005; 93010; 99285-25

== ENCOUNTER 2023-09-03 14:54 | Emergency (ER) | payer OTHER ==
[2023-09-03 15:40] VITALS: TEMP 97.4; BMI 24.3
[2023-09-03] MEDS: SODIUM CHLORIDE 2,177 ML IV ONE (16:00)
[2023-09-03 16:39] LABS: BASO % 0.3 % (0-2.0); EOS % 0.1 % (0-4.5); HEMATOCRIT 35.2 % (35.4-49); HEMOGLOBIN 12.1 GM/dL (11.7-16.9); LYMPH % 10.7 % (8-40); MCH 34.5 pg (25.7-33.7); MCHC 34.3 g/dl (32.0-35.9); MEAN CELL VOLUME 100.5 fl (80-96); MEAN PLT VOLUME 7.9 fl (7.5-11.1); NEUT % 75.9 % (42.8-82.8); PLATELET COUNT 378 10^3/uL (134-434); RDW 14.3 % (11.9-15.9)
[2023-09-03 16:45] LABS: VENOUS BASE EXCESS 3.1 mmol/L (-2-2); VENOUS O2 SATURATION 43.8 % (70-80); VENOUS PH 7.244 (7.310-7.410)
[2023-09-03 16:47] LABS: INR 1.17 (0.83-1.09); PROTHROMBIN TIME (PATIENT) 13.5 SEC (9.7-13.0)
[2023-09-03 16:47] LABS: VENOUS PCO2 77.8 mmHg (38-52)
[2023-09-03 16:50] LABS: ACTIVATED PTT 30.2 SECONDS (25.2-36.5)
[2023-09-03 16:56] LABS: POTASSIUM 5.5 mmol/L (3.5-5.1)
[2023-09-03 16:58] LABS: CALCIUM 9.3 mg/dL (8.5-10.1)
[2023-09-03 16:59] LABS: ALBUMIN 3.1 g/dl (3.4-5.0); BLOOD UREA NITROGEN 18.8 mg/dL (7-18)
[2023-09-03 17:02] LABS: CREATININE 1.1 mg/dL (0.55-1.3)
[2023-09-03 17:03] LABS: BILIRUBIN,TOTAL 0.2 mg/dL (0.2-1); TOT PROT 8.2 g/dl (6.4-8.2)
[2023-09-03] MEDS ORDERED: CALCIUM GLUCONATE 10% - 1,000 MG/10 ML VIAL ONE (17:33)
[2023-09-03] MEDS ORDERED: SODIUM ZIRCONIUM CYCLOSILICATE (LOKELMA) 10 GM PACKET ONE (17:33)
[2023-09-03] MEDS: SODIUM CHLORIDE 0.9% 500 ML INFUS.BAG IV ONE (17:45)
[2023-09-03] MEDS: CALCIUM GLUCONATE 10% - 1,000 MG/10 ML VIAL IVPUSH ONE (17:45)
[2023-09-03 18:11] LABS: VENOUS BASE EXCESS 3.9 mmol/L (-2-2); VENOUS PH 7.324 (7.310-7.410)
[2023-09-03] MEDS: SODIUM ZIRCONIUM CYCLOSILICATE (LOKELMA) 5 GM PACKET GT ONE (18:17)
[2023-09-03] MEDS: SODIUM ZIRCONIUM CYCLOSILICATE (LOKELMA) 5 GM PACKET PO ONE (18:17)
[2023-09-03 19:03] VITALS: BP 114/78
[2023-09-03 19:40] LABS: POTASSIUM 5.7 mmol/L (3.5-5.1)
[2023-09-03 19:41] LABS: CALCIUM 9.1 mg/dL (8.5-10.1)
[2023-09-03 19:42] LABS: BLOOD UREA NITROGEN 17.8 mg/dL (7-18)
[2023-09-03 19:45] LABS: CREATININE 0.9 mg/dL (0.55-1.3)
[2023-09-03 23:55] VITALS: PULSE 83; RESP 17
== END 2023-09-04 02:55 ==
LOC: JER 14:54
PROC: 3E033GC Introduction of Other Therapeutic Substance into Peripheral Vein, Percutaneous Approach (ICD-10-PCS; principal; 2023-09-03)
DX: J95.00 Unspecified tracheostomy complication (principal); R00.0 Tachycardia, unspecified; R06.82 Tachypnea, not elsewhere classified; Z20.822 Contact with and (suspected) exposure to COVID-19
CPT/HCPCS: 0241U-QW; 36415; 71045-TC-FY; 80048; 80053; 82550; 82803; 83605; 84132; 84484; 85025; 85610; 85730; 86850; 86900; 86901; 87040; 93005; 93010; 96374; 99285-25

== ENCOUNTER 2023-09-08 23:01 | Inpatient (IN) | payer OTHER ==
[2023-09-08] MEDS: ALBUTEROL SO4 2.5/IPRATROPIUM 0.5 INH SOL 3 ML VIAL.NEB. NEB SCH (23:57)
[2023-09-09 00:58] LABS: VENOUS BASE EXCESS -1.3 mmol/L (-2-2); VENOUS O2 SATURATION 87.3 % (70-80)
[2023-09-09 00:59] LABS: BASO % 0.2 % (0-2.0); EOS % 0.1 % (0-4.5); HEMATOCRIT 39.4 % (35.4-49); HEMOGLOBIN 13.2 GM/dL (11.7-16.9); LYMPH % 13.6 % (8-40); MCH 34.1 pg (25.7-33.7); MCHC 33.4 g/dl (32.0-35.9); MEAN CELL VOLUME 102.1 fl (80-96); MONO % 12.2 % (3.8-10.2); NEUT % 73.9 % (42.8-82.8); PLATELET COUNT 220 10^3/uL (134-434); RBC 3.86 M/mm3 (4.00-5.60); WHITE BLOOD COUNT 13.4 K/mm3 (4.0-10.0)
[2023-09-09 01:02] LABS: VENOUS PCO2 79.8 mmHg (38-52); VENOUS PH 7.183 (7.310-7.410)
[2023-09-09 01:26] LABS: ACTIVATED PTT 31.8 SECONDS (25.2-36.5); INR 1.13 (0.83-1.09); PROTHROMBIN TIME (PATIENT) 13.1 SEC (9.7-13.0)
[2023-09-09 01:34] LABS: LACTIC ACID 2.3 mmol/L (0.4-2.0)
[2023-09-09 02:05] LABS: POTASSIUM 5.9 mmol/L (3.5-5.1)
[2023-09-09 02:07] LABS: CALCIUM 9.4 mg/dL (8.5-10.1)
[2023-09-09 02:08] LABS: ALBUMIN 3.3 g/dl (3.4-5.0)
[2023-09-09] MEDS: SODIUM CHLORIDE 0.9% 500 ML INFUS.BAG IV ONE ×2 (02:09→08:39)
[2023-09-09 02:13] LABS: BILIRUBIN,TOTAL 0.2 mg/dL (0.2-1)
[2023-09-09] MEDS ORDERED: ALBUTEROL SO4 2.5/IPRATROPIUM 0.5 INH SOL 3 ML VIAL.NEB. NEB ONE ×3 (04:13→16:09)
[2023-09-09 04:28] LABS: VENOUS BASE EXCESS 0.1 mmol/L (-2-2); VENOUS O2 SATURATION 51.6 % (70-80); VENOUS PH 7.224 (7.310-7.410)
[2023-09-09 04:31] LABS: VENOUS PCO2 72.8 mmHg (38-52)
[2023-09-09 05:01] LABS: CHLORIDE 101 mmol/L (98-107); SODIUM 136 mmol/L (136-145)
[2023-09-09 05:03] LABS: BLOOD UREA NITROGEN 17.3 mg/dL (7-18); CALCIUM 9.4 mg/dL (8.5-10.1); CO2 29 mmol/L (21-32); GLUCOSE,RANDOM 98 mg/dL (74-106)
[2023-09-09 05:13] LABS: ANION GAP 6 mmol/L (4-13); POTASSIUM 6.4 mmol/L (3.5-5.1)
[2023-09-09] MEDS: PIPERACILLIN/TAZOB 4.5 GM 4.5 GM in DEXTROSE 5%-WATER 100 ML IVPB ONE (05:16)
[2023-09-09] MEDS ORDERED: PIPERACILLIN/TAZOB 4.5 GM 4.5 GM/100 ML BAG IVPB ONE ×2 (05:18→15:53)
[2023-09-09] MEDS ORDERED: VANCOMYCIN/WATER 1250 MG 1,250 MG/250 ML BAG IVPB ONE (05:35)
[2023-09-09] MEDS: VANCOMYCIN/WATER 1250 MG 1,250 MG/250 ML BAG IVPB ONE (05:40)
[2023-09-09] MEDS: ALBUTEROL SO4 2.5/IPRATROPIUM 0.5 INH SOL 3 ML VIAL.NEB. NEB ONE (08:48)
[2023-09-09 13:02] LABS: PH,URINE 6.5 (5.0-8.0); URINE APPEARANCE CLEAR; URINE BILIRUBIN NEGATIVE (NEGATIVE); URINE COLOR YELLOW; URINE GLUCOSE (UA) NEGATIVE (NEGATIVE); URINE KETONE NEGATIVE (NEGATIVE); URINE LEUK ESTERASE NEGATIVE (NEGATIVE); URINE NITRITE NEGATIVE (NEGATIVE); URINE PROTEIN NEGATIVE (NEGATIVE); URINE UROBILINOGEN 0.2 mg/dL (0.2-1.0)
[2023-09-09] MEDS: PIPERACILLIN/TAZOB 4.5 GM 4.5 GM in DEXTROSE 5%-WATER 100 ML IVPB SCH (15:54)
[2023-09-09] MEDS: ALBUTEROL SO4 2.5/IPRATROPIUM 0.5 INH SOL 3 ML VIAL.NEB. NEB SCH (16:02)
[2023-09-09 17:03] LABS: ARTERIAL BLD GAS O2 SATURATION 97.5 % (95-98); ARTERIAL BLOOD GAS BASE EXCESS 3.4 mmol/L (-2-2); ARTERIAL BLOOD GAS PO2 93.2 mmHg (80-100); ARTERIAL BLOOD GAS pH 7.462 (7.350-7.450)
[2023-09-09 17:06] LABS: ALLENS TEST POSITIVE
[2023-09-09 17:07] LABS: VENT RATE 20
[2023-09-09] MEDS: INSULIN ASPART SLIDING SCALE (NOVOLOG) 1 VIAL SQ SCH (17:25)
[2023-09-09] MEDS: BICTEGRAV/EMTRICIT/TENOFOV (BIKTARVY) 50-200-25 MG TABLET PO SCH (18:50)
[2023-09-09] MEDS: METOPROLOL TARTRATE 25 MG TABLET (FP) GT SCH (21:45)
[2023-09-09] MEDS: POLYETHYLENE GLYCOL (HEALTHYLAX) 3350 17 GM PACKET GT SCH (21:45)
[2023-09-09] MEDS: VALPROATE SODIUM 250 MG/5 ML UNIT DOSE CUP PEG SCH (21:45)
[2023-09-09] MEDS: clonazePAM 0.5 MG TABLET GT SCH (21:45)
[2023-09-09] MEDS: TAMSULOSIN HCL 0.4 MG CAP PO SCH (21:46)
[2023-09-09] MEDS: FAMOTIDINE 20 MG/2.5 ML ORAL LIQUID GT SCH (23:40)
[2023-09-10 07:31] LABS: HEMATOCRIT 29.4 % (35.4-49); MCH 34.4 pg (25.7-33.7); MCHC 33.9 g/dl (32.0-35.9); MEAN CELL VOLUME 101.3 fl (80-96); MEAN PLT VOLUME 7.3 fl (7.5-11.1); PLATELET COUNT 389 10^3/uL (134-434); RDW 14.7 % (11.9-15.9); WHITE BLOOD COUNT 8.5 K/mm3 (4.0-10.0)
[2023-09-10 08:13] LABS: POTASSIUM 4.4 mmol/L (3.5-5.1)
[2023-09-10 08:23] LABS: ALBUMIN 2.8 g/dl (3.4-5.0); BLOOD UREA NITROGEN 14.1 mg/dL (7-18); CALCIUM 8.5 mg/dL (8.5-10.1); MAGNESIUM 1.9 mg/dL (1.8-2.4)
[2023-09-10 08:26] LABS: CREATININE 0.9 mg/dL (0.55-1.3); PHOSPHOROUS 3.6 mg/dL (2.5-4.9)
[2023-09-10 08:27] LABS: BILIRUBIN,TOTAL 0.4 mg/dL (0.2-1); TOT PROT 7.1 g/dl (6.4-8.2)
[2023-09-10] MEDS ORDERED: PANTOPRAZOLE SOD 40 MG SUSPENSION PACKET PO SCH (10:00)
[2023-09-10] MEDS: ENOXAPARIN NA (PORCINE) 40 MG/0.4 ML DISP.SYRIN SQ SCH (10:48)
[2023-09-10] MEDS: amLODIPine BESYLATE 5 MG TABLET (FP) GT SCH (10:50)
[2023-09-10 13:13] VITALS: BMI 29.5
[2023-09-10] MEDS: AMINO ACIDS/PROTEIN HYDROLYS 30 ML LIQUID.PKT PO SCH (17:46)
[2023-09-11 08:34] LABS: BASO % 0.6 % (0-2.0); EOS % 3.3 % (0-4.5); HEMATOCRIT 31.6 % (35.4-49); HEMOGLOBIN 10.7 GM/dL (11.7-16.9); LYMPH % 40.7 % (8-40); MEAN PLT VOLUME 7.3 fl (7.5-11.1); MONO % 14.8 % (3.8-10.2); NEUT % 40.6 % (42.8-82.8); PLATELET COUNT 412 10^3/uL (134-434); RBC 3.16 M/mm3 (4.00-5.60); RDW 14.7 % (11.9-15.9); WHITE BLOOD COUNT 5.3 K/mm3 (4.0-10.0)
[2023-09-11 08:40] LABS: POTASSIUM 4.1 mmol/L (3.5-5.1)
[2023-09-11 08:43] LABS: CALCIUM 8.9 mg/dL (8.5-10.1)
[2023-09-11 08:44] LABS: ALBUMIN 2.7 g/dl (3.4-5.0); BLOOD UREA NITROGEN 14.5 mg/dL (7-18)
[2023-09-11 08:47] LABS: CREATININE 0.9 mg/dL (0.55-1.3)
[2023-09-11 08:49] LABS: BILIRUBIN,TOTAL 0.3 mg/dL (0.2-1); TOT PROT 7.5 g/dl (6.4-8.2)
[2023-09-11] MEDS ORDERED: ACETAMINOPHEN 1000 MG/100 ML BAG IVPB PRN (13:15)
[2023-09-11] MEDS: BUDESONIDE/FORMETEROL FUMARATE 160/4.5 mcg INHALER IH SCH (14:02)
[2023-09-11] MEDS: BICTEGRAV/EMTRICIT/TENOFOV (BIKTARVY) 50-200-25 MG TABLET PO SCH (14:03)
[2023-09-11 18:18] VITALS: TEMP 98.6
[2023-09-12 00:16] VITALS: RESP 13
[2023-09-12 00:18] VITALS: BP 118/83; PULSE 79
== END 2023-09-12 01:11 | DRG 143 ==
LOC: JER 23:01 → JERBED 09-09 04:16 → J2W 09-09 20:30
PROVIDERS: ADMIT Internal Medicine
PROC: 5A1945Z Respiratory Ventilation, 24-96 Consecutive Hours (ICD-10-PCS; principal; 2023-09-08)
DX: T17.890A Other foreign object in other parts of respiratory tract causing asphyxiation, initial encounter (principal); G40.909 Epilepsy, unspecified, not intractable, without status epilepticus; R13.10 Dysphagia, unspecified; G93.1 Anoxic brain damage, not elsewhere classified; J96.22 Acute and chronic respiratory failure with hypercapnia; J95.851 Ventilator associated pneumonia; J96.21 Acute and chronic respiratory failure with hypoxia; B37.9 Candidiasis, unspecified; R00.0 Tachycardia, unspecified; E11.9 Type 2 diabetes mellitus without complications; K21.9 Gastro-esophageal reflux disease without esophagitis; F20.9 Schizophrenia, unspecified; R14.0 Abdominal distension (gaseous); E87.5 Hyperkalemia; J44.9 Chronic obstructive pulmonary disease, unspecified; B20 Human immunodeficiency virus [HIV] disease; F39 Unspecified mood [affective] disorder; L89.623 Pressure ulcer of left heel, stage 3; R53.2 Functional quadriplegia; L89.223 Pressure ulcer of left hip, stage 3; Z86.73 Personal history of transient ischemic attack (TIA), and cerebral infarction without residual deficits; Z80.0 Family history of malignant neoplasm of digestive organs
CPT/HCPCS: 0241U-QW; 36415; 36600; 71045-TC-FY; 71275-TC; 74018-TC-FY; 80048; 80053; 81003; 82550; 82553; 82803; 82962; 83605; 83735; 84100; 84484; 85025; 85027; 85610; 85730; 86850; 86900; 86901; 87040; 87070; 87081; 87086; 87186; 87205; 93005; 93010; 94002; 94640; 99285-25; Q9967

== ENCOUNTER 2023-10-11 17:50 | Inpatient (IN) | payer OTHER ==
[2023-10-11 21:47] LABS: VENOUS BASE EXCESS 0.7 mmol/L (-2-2); VENOUS O2 SATURATION 47.5 % (70-80); VENOUS PH 7.224 (7.310-7.410)
[2023-10-11 21:48] LABS: VENOUS PCO2 74.8 mmHg (38-52)
[2023-10-11 21:54] LABS: BASO % 0.6 % (0-2.0); EOS % 0.1 % (0-4.5); HEMATOCRIT 34.4 % (35.4-49); HEMOGLOBIN 11.5 GM/dL (11.7-16.9); LYMPH % 8.2 % (8-40); MCH 34.1 pg (25.7-33.7); MCHC 33.5 g/dl (32.0-35.9); MEAN CELL VOLUME 101.7 fl (80-96); MEAN PLT VOLUME 7.6 fl (7.5-11.1); MONO % 14.2 % (3.8-10.2); NEUT % 76.9 % (42.8-82.8); PLATELET COUNT 479 10^3/uL (134-434); RBC 3.39 M/mm3 (4.00-5.60); RDW 14.9 % (11.9-15.9)
[2023-10-11] MEDS: SODIUM CHLORIDE 0.9% 500 ML INFUS.BAG IV ONE (21:54)
[2023-10-11 22:03] LABS: INR 1.15 (0.83-1.09); PROTHROMBIN TIME (PATIENT) 13.3 SEC (9.7-13.0)
[2023-10-11 22:05] LABS: ACTIVATED PTT 29.6 SECONDS (25.2-36.5)
[2023-10-11 22:22] LABS: CALCIUM 9.3 mg/dL (8.5-10.1)
[2023-10-11 22:23] LABS: ALBUMIN 3.3 g/dl (3.4-5.0); BLOOD UREA NITROGEN 20.4 mg/dL (7-18)
[2023-10-11 22:26] LABS: CREATININE 1.1 mg/dL (0.55-1.3)
[2023-10-11 22:28] LABS: BILIRUBIN,TOTAL 0.3 mg/dL (0.2-1); TOT PROT 8.6 g/dl (6.4-8.2)
[2023-10-11 23:03] LABS: EPI CELLS 25 /uL (0-25.1); HYALINE CASTS 5 /uL (0-3.1); URINE APPEARANCE CLEAR; URINE BACTERIA 7 /uL (0-1359); URINE BILIRUBIN NEGATIVE (NEGATIVE); URINE COLOR DK YELLOW; URINE GLUCOSE (UA) NEGATIVE (NEGATIVE); URINE KETONE NEGATIVE (NEGATIVE); URINE LEUK ESTERASE NEGATIVE (NEGATIVE); URINE NITRITE NEGATIVE (NEGATIVE); URINE PROTEIN 1+ (NEGATIVE); URINE RBC 12 /uL (0-23.9); URINE WBC 12 /uL (0-25.8)
[2023-10-11] MEDS ORDERED: DEXTROSE 50%-WATER 25 GM/50 ML DISP.SYRIN ONE (23:44)
[2023-10-11] MEDS ORDERED: CALCIUM GLUC IN NACL, ISO-OSM 1 GM/50 ML BAG IVPB ONE (23:44)
[2023-10-11] MEDS ORDERED: INSULIN REGULAR HUMAN 100 UNITS/ML *VIAL ONE (23:45)
[2023-10-11] MEDS: DEXTROSE 50%-WATER - 25 GM/50 ML VIAL IVPUSH ONE (23:52)
[2023-10-11] MEDS: CALCIUM GLUCONATE 10% - 1,000 MG/10 ML VIAL IVPB ONE (23:52)
[2023-10-11] MEDS: INSULIN REGULAR HUMAN 100 UNITS/ML *VIAL IVPUSH ONE (23:52)
[2023-10-12] MEDS ORDERED: ACETAMINOPHEN 325 MG TABLET (FP) PO PRN (01:31)
[2023-10-12] MEDS ORDERED: SODIUM ZIRCONIUM CYCLOSILICATE (LOKELMA) 10 GM PACKET ONE (03:01)
[2023-10-12] MEDS: SODIUM ZIRCONIUM CYCLOSILICATE (LOKELMA) 5 GM PACKET PO ONE (03:07)
[2023-10-12] MEDS ORDERED: ACETAMINOPHEN 650 MG/20.3 ML ORAL SOLUTION (CUPS) GT PRN (03:59)
[2023-10-12 07:06] LABS: POTASSIUM 4.4 mmol/L (3.5-5.1)
[2023-10-12 07:14] LABS: ALBUMIN 2.8 g/dl (3.4-5.0); BLOOD UREA NITROGEN 17.9 mg/dL (7-18); MAGNESIUM 1.9 mg/dL (1.8-2.4)
[2023-10-12 07:17] LABS: CREATININE 0.7 mg/dL (0.55-1.3); PHOSPHOROUS 2.8 mg/dL (2.5-4.9)
[2023-10-12 07:19] LABS: BILIRUBIN,TOTAL 0.5 mg/dL (0.2-1); TOT PROT 7.1 g/dl (6.4-8.2)
[2023-10-12] MEDS: BICTEGRAV/EMTRICIT/TENOFOV (BIKTARVY) 50-200-25 MG TABLET PO SCH (07:26)
[2023-10-12] MEDS: INSULIN ASPART SLIDING SCALE (NOVOLOG) 1 VIAL SQ SCH (07:26)
[2023-10-12 07:42] LABS: HEMATOCRIT 30.5 % (35.4-49); HEMOGLOBIN 10.3 GM/dL (11.7-16.9); MCH 34.2 pg (25.7-33.7); MCHC 33.9 g/dl (32.0-35.9); MEAN PLT VOLUME 7.8 fl (7.5-11.1); PLATELET COUNT 406 10^3/uL (134-434); RBC 3.02 M/mm3 (4.00-5.60); RDW 14.7 % (11.9-15.9); WHITE BLOOD COUNT 9.1 K/mm3 (4.0-10.0)
[2023-10-12] MEDS: VALPROATE SODIUM 250 MG/5 ML UNIT DOSE CUP PEG SCH (10:20)
[2023-10-12] MEDS: levETIRAcetam 500 MG/5 ML ORAL SOLUTION (UNIT-DOSE CUPS) GT SCH (10:20)
[2023-10-12] MEDS: amLODIPine BESYLATE 5 MG TABLET (FP) GT SCH (10:21)
[2023-10-12] MEDS: SODIUM ZIRCONIUM CYCLOSILICATE (LOKELMA) 5 GM PACKET PO SCH (10:21)
[2023-10-12] MEDS: METOPROLOL TARTRATE 25 MG TABLET (FP) GT SCH (10:21)
[2023-10-12] MEDS: ENOXAPARIN NA (PORCINE) 40 MG/0.4 ML DISP.SYRIN SQ SCH (10:21)
[2023-10-12] MEDS ORDERED: ALBUTEROL SO4 2.5/IPRATROPIUM 0.5 INH SOL 3 ML VIAL.NEB. NEB ONE (15:54)
[2023-10-12] MEDS: ALBUTEROL SO4 2.5/IPRATROPIUM 0.5 INH SOL 3 ML VIAL.NEB. NEB SCH (15:59)
[2023-10-12] MEDS ORDERED: PNEUMOC 20-VAL CONJ-DIP CRM/PF 0.5 ML SYRINGE IM ONE (19:36)
[2023-10-12] MEDS: ACETAMINOPHEN 1000 MG/100 ML BAG IVPB PRN (21:56)
[2023-10-12] MEDS ORDERED: TAMSULOSIN HCL 0.4 MG CAP NR SCH (22:00)
[2023-10-13 07:30] LABS: ALBUMIN 2.9 g/dl (3.4-5.0); BILIRUBIN,TOTAL 0.5 mg/dL (0.2-1); BLOOD UREA NITROGEN 18.5 mg/dL (7-18); CALCIUM 9.2 mg/dL (8.5-10.1); CREATININE 0.8 mg/dL (0.55-1.3); POTASSIUM 3.9 mmol/L (3.5-5.1); TOT PROT 7.1 g/dl (6.4-8.2)
[2023-10-13 08:37] LABS: EOS % 2.8 % (0-4.5); HEMATOCRIT 29.7 % (35.4-49); HEMOGLOBIN 10.3 GM/dL (11.7-16.9); LYMPH % 33.8 % (8-40); MCH 34.7 pg (25.7-33.7); MCHC 34.6 g/dl (32.0-35.9); MEAN CELL VOLUME 100.5 fl (80-96); MEAN PLT VOLUME 7.7 fl (7.5-11.1); MONO % 11.9 % (3.8-10.2); NEUT % 50.5 % (42.8-82.8); PLATELET COUNT 418 10^3/uL (134-434); RBC 2.96 M/mm3 (4.00-5.60); RDW 14.4 % (11.9-15.9)
[2023-10-13 12:14] LABS: ARTERIAL BLD GAS O2 SATURATION 99.6 % (95-98); ARTERIAL BLOOD GAS BASE EXCESS 1.9 mmol/L (-2-2); ARTERIAL BLOOD GAS PO2 226.8 mmHg (80-100); ARTERIAL BLOOD GAS pH 7.477 (7.350-7.450)
[2023-10-13 12:18] LABS: ALLENS TEST POSITIVE; VENT MODE A/C; VENT RATE 12
[2023-10-13 16:55] VITALS: BMI 26.4
[2023-10-14 07:15] LABS: BASO % 0.7 % (0-2.0); EOS % 1.7 % (0-4.5); HEMATOCRIT 31.4 % (35.4-49); HEMOGLOBIN 10.8 GM/dL (11.7-16.9); LYMPH % 29.6 % (8-40); MCH 34.3 pg (25.7-33.7); MCHC 34.5 g/dl (32.0-35.9); MEAN CELL VOLUME 99.3 fl (80-96); MEAN PLT VOLUME 7.7 fl (7.5-11.1); MONO % 10.1 % (3.8-10.2); NEUT % 57.9 % (42.8-82.8); PLATELET COUNT 474 10^3/uL (134-434); RBC 3.16 M/mm3 (4.00-5.60); RDW 14.6 % (11.9-15.9); WHITE BLOOD COUNT 8.5 K/mm3 (4.0-10.0)
[2023-10-14] MEDS: AMINO ACIDS/PROTEIN HYDROLYS 30 ML LIQUID.PKT GT SCH (09:00)
[2023-10-14] MEDS: ACETAMINOPHEN 1000 MG/100 ML BAG IVPB ONE (21:39)
[2023-10-15 07:31] LABS: HEMATOCRIT 31.6 % (35.4-49); HEMOGLOBIN 10.7 GM/dL (11.7-16.9); MCH 33.9 pg (25.7-33.7); MCHC 33.8 g/dl (32.0-35.9); MEAN CELL VOLUME 100.2 fl (80-96); MEAN PLT VOLUME 8.1 fl (7.5-11.1); PLATELET COUNT 487 10^3/uL (134-434); RBC 3.16 M/mm3 (4.00-5.60); RDW 14.6 % (11.9-15.9); WHITE BLOOD COUNT 11.7 K/mm3 (4.0-10.0)
[2023-10-15 07:57] LABS: POTASSIUM 3.6 mmol/L (3.5-5.1)
[2023-10-15 08:01] LABS: CALCIUM 9.1 mg/dL (8.5-10.1)
[2023-10-15 08:02] LABS: ALBUMIN 3.1 g/dl (3.4-5.0); BLOOD UREA NITROGEN 16.3 mg/dL (7-18)
[2023-10-15 08:06] LABS: BILIRUBIN,TOTAL 0.4 mg/dL (0.2-1)
[2023-10-15 08:07] LABS: TOT PROT 7.6 g/dl (6.4-8.2)
[2023-10-16 06:43] LABS: HEMATOCRIT 32.1 % (35.4-49); HEMOGLOBIN 10.6 GM/dL (11.7-16.9); MCH 33.2 pg (25.7-33.7); MEAN CELL VOLUME 100.5 fl (80-96); MEAN PLT VOLUME 7.5 fl (7.5-11.1); PLATELET COUNT 446 10^3/uL (134-434); RBC 3.19 M/mm3 (4.00-5.60); RDW 14.8 % (11.9-15.9); WHITE BLOOD COUNT 8.4 K/mm3 (4.0-10.0)
[2023-10-16 07:11] LABS: POTASSIUM 3.6 mmol/L (3.5-5.1)
[2023-10-16 07:15] LABS: BLOOD UREA NITROGEN 16.5 mg/dL (7-18); CALCIUM 9.1 mg/dL (8.5-10.1)
[2023-10-16 07:18] LABS: CREATININE 0.9 mg/dL (0.55-1.3)
[2023-10-16 07:20] LABS: BILIRUBIN,TOTAL 0.3 mg/dL (0.2-1); TOT PROT 7.4 g/dl (6.4-8.2)
[2023-10-16 17:51] VITALS: BP 107/74; PULSE 84; RESP 22; TEMP 98.8
== END 2023-10-16 19:30 | DRG 130 ==
LOC: JER 17:50 → JERBED 23:13 → J2W 10-12 18:49 → OBSVTOIN 10-13 12:02
PROVIDERS: ADMIT Internal Medicine; ATTEND Internal Medicine
PROC: 5A1955Z Respiratory Ventilation, Greater than 96 Consecutive Hours (ICD-10-PCS; principal; 2023-10-11)
DX: T17.490A Other foreign object in trachea causing asphyxiation, initial encounter (principal); G93.1 Anoxic brain damage, not elsewhere classified; R53.2 Functional quadriplegia; G40.909 Epilepsy, unspecified, not intractable, without status epilepticus; Z21 Asymptomatic human immunodeficiency virus [HIV] infection status; J96.21 Acute and chronic respiratory failure with hypoxia; E11.9 Type 2 diabetes mellitus without complications; J44.1 Chronic obstructive pulmonary disease with (acute) exacerbation; J96.22 Acute and chronic respiratory failure with hypercapnia; F20.9 Schizophrenia, unspecified; D72.829 Elevated white blood cell count, unspecified; D64.9 Anemia, unspecified; F31.9 Bipolar disorder, unspecified; E87.5 Hyperkalemia; J18.9 Pneumonia, unspecified organism; J98.11 Atelectasis; B18.2 Chronic viral hepatitis C; K21.9 Gastro-esophageal reflux disease without esophagitis; Z85.038 Personal history of other malignant neoplasm of large intestine; L89.222 Pressure ulcer of left hip, stage 2
CPT/HCPCS: 0241U-QW; 36415; 36600; 71045-TC-FY; 71250-TC; 80053; 81003; 82803; 82962; 83605; 83735; 84100; 84484; 85025; 85027; 85610; 85730; 86359; 86360; 86850; 86900; 86901; 87040; 87086; 87635; 93005; 93010; 94002; 94640; 99285-25; G0378; J0131

== ENCOUNTER 2024-06-28 13:01 | Inpatient (IN) | payer OTHER ==
[2024-06-28] MEDS ORDERED: PIPERACILLIN/TAZOB 4.5 GM 4.5 GM/100 ML BAG IVPB ONE (14:24)
[2024-06-28] MEDS ORDERED: ACETAMINOPHEN INJECTION 100 ML ONE (14:24)
[2024-06-28] MEDS: SODIUM CHLORIDE 1,000 ML IV STA ×2 (14:42→15:15)
[2024-06-28] MEDS: PIPERACILLIN/TAZOB 4.5 GM 4.5 GM in DEXTROSE 5%-WATER 100 ML IVPB ONE (14:43)
[2024-06-28] MEDS: ACETAMINOPHEN 1000 MG/100 ML BAG IVPB ONE (14:43)
[2024-06-28 14:50] LABS: VENOUS BASE EXCESS 0.2 mmol/L (-2-2); VENOUS O2 SATURATION 73.2 % (70-80); VENOUS PCO2 46.2 mmHg (38-52); VENOUS PH 7.368 (7.310-7.410)
[2024-06-28 14:53] LABS: BASO % 0.6 % (0-2.0); EOS % 0.1 % (0-4.5); HEMATOCRIT 35.3 % (35.4-49); HEMOGLOBIN 11.9 GM/dL (11.7-16.9); LYMPH % 16.3 % (8-40); MCH 32.7 pg (25.7-33.7); MCHC 33.8 g/dl (32.0-35.9); MEAN CELL VOLUME 96.8 fl (80-96); MEAN PLT VOLUME 9.3 fl (7.5-11.1); MONO % 10.6 % (3.8-10.2); NEUT % 72.4 % (42.8-82.8); PLATELET COUNT 361 10^3/uL (134-434); RBC 3.65 M/mm3 (4.00-5.60); RDW 15.2 % (11.9-15.9); WHITE BLOOD COUNT 9.5 K/mm3 (4.0-10.0)
[2024-06-28 14:59] LABS: INR 1.08 (0.83-1.09); PROTHROMBIN TIME (PATIENT) 12.2 SEC (9.7-13.0)
[2024-06-28 15:01] LABS: ACTIVATED PTT 23.8 SECONDS (25.2-36.5)
[2024-06-28] MEDS: WATER IVPB ONE (15:02)
[2024-06-28] MEDS: VANCOMYCIN HCL IVPB ONE (15:02)
[2024-06-28] MEDS: DEXTROSE 5% IVPB ONE (15:02)
[2024-06-28 15:13] LABS: URINE APPEARANCE HAZY; URINE BILIRUBIN NEGATIVE (NEGATIVE); URINE COLOR YELLOW; URINE GLUCOSE (UA) NEGATIVE (NEGATIVE); URINE KETONE NEGATIVE (NEGATIVE); URINE PROTEIN TRACE (NEGATIVE)
[2024-06-28 15:14] LABS: URINE BACTERIA NEGATIVE /uL (0-1359); URINE LEUK ESTERASE 2+ (NEGATIVE); URINE NITRITE NEGATIVE (NEGATIVE); URINE RBC 0-3 /uL (0-23.9); URINE UROBILINOGEN 0.2 mg/dL (0.2-1.0)
[2024-06-28 15:15] LABS: POTASSIUM 4.5 mmol/L (3.5-5.1)
[2024-06-28] MEDS: SODIUM CHLORIDE IV ONE (15:15)
[2024-06-28 15:18] LABS: ALBUMIN 2.9 g/dl (3.4-5.0); BLOOD UREA NITROGEN 10.4 mg/dL (7-18)
[2024-06-28 15:21] LABS: CREATININE 0.9 mg/dL (0.55-1.3)
[2024-06-28 15:22] LABS: BILIRUBIN,TOTAL 0.3 mg/dL (0.2-1); TOT PROT 9.1 g/dl (6.4-8.2)
[2024-06-28 15:27] LABS: LACTIC ACID 3.3 mmol/L (0.4-2.0)
[2024-06-28] MEDS ORDERED: VANCOMYCIN/WATER 1250 MG 1,250 MG/250 ML BAG IVPB ONE (15:33)
[2024-06-28] MEDS ORDERED: NOREPINEPHRINE 0.9 % NACL 8 MG/250 ML BAG IVPB ONE (15:33)
[2024-06-28] MEDS ORDERED: PANTOPRAZOLE SODIUM 40 MG VIAL ONE (15:33)
[2024-06-28] MEDS: NOREPINEPHRINE 0.9 % NACL 8 MG/250 ML BAG IVPB SCH (15:45)
[2024-06-28] MEDS ORDERED: ARTIFICIAL TEARS OPHTHALMIC DROPS OU PRN (16:16)
[2024-06-28] MEDS: VANCOMYCIN 1,250 MG in DEXTROSE 5%-WATER - 250 ML IVPB ONE (18:00)
[2024-06-28] MEDS: PANTOPRAZOLE SODIUM 40 MG VIAL IVPUSH ONE (18:27)
[2024-06-28] MEDS: NOREPINEPHRINE BITARTRATE 16,000 MCG in SODIUM CHLORIDE 484 ML IV SCH (18:27)
[2024-06-28] MEDS: TOBRAMYCIN IH ONE (18:46)
[2024-06-28] MEDS: SODIUM CHLORIDE IH ONE (18:46)
[2024-06-28 18:48] LABS: HEMATOCRIT 33.1 % (35.4-49); HEMOGLOBIN 10.8 GM/dL (11.7-16.9); MCH 31.7 pg (25.7-33.7); MCHC 32.8 g/dl (32.0-35.9); MEAN CELL VOLUME 96.7 fl (80-96); MEAN PLT VOLUME 8.4 fl (7.5-11.1); PLATELET COUNT 355 10^3/uL (134-434); RBC 3.42 M/mm3 (4.00-5.60); RDW 15.6 % (11.9-15.9); WHITE BLOOD COUNT 12.2 K/mm3 (4.0-10.0)
[2024-06-28 19:35] LABS: LACTIC ACID 2.1 mmol/L (0.4-2.0)
[2024-06-28] MEDS: PIPERACILLIN/TAZOB 3.375 GM 50 ML IVPB SCH (20:50)
[2024-06-28] MEDS: levETIRAcetam 500 MG/5 ML ORAL SOLUTION (UNIT-DOSE CUPS) GT SCH (21:50)
[2024-06-28] MEDS: VALPROATE SODIUM 250 MG/5 ML UNIT DOSE CUP GT SCH (21:50)
[2024-06-28] MEDS: clonazePAM 0.5 MG TABLET GT SCH (21:51)
[2024-06-28] MEDS: PANTOPRAZOLE SODIUM 40 MG VIAL IVPUSH SCH (21:51)
[2024-06-28] MEDS: CHLORHEXIDINE GLUCONATE 4% CLEANSER FOR DECOLONIZATION TP SCH (21:51)
[2024-06-28] MEDS: MUPIROCIN 2% TOPICAL OINTMENT FOR DECOLONIZATION NS SCH (21:51)
[2024-06-28] MEDS ORDERED: TAMSULOSIN HCL 0.4 MG CAP PO ONE (22:00)
[2024-06-28] MEDS ORDERED: TOBRAMYCIN IH SCH (22:00)
[2024-06-28] MEDS ORDERED: SODIUM CHLORIDE IH SCH (22:00)
[2024-06-29] MEDS: ACETAMINOPHEN 650 MG/20.3 ML ORAL SOLUTION (CUPS) GT PRN (00:05)
[2024-06-29] MEDS: VANCOMYCIN/WATER 1250 MG 1,250 MG/250 ML BAG IVPB SCH (04:01)
[2024-06-29] MEDS: ACETAMINOPHEN 1000 MG/100 ML BAG IVPB ONE (04:23)
[2024-06-29] MEDS: SODIUM CHLORIDE 0.9% 1000 ML INFUS.BAG IV ONE (06:20)
[2024-06-29] MEDS: SODIUM CHLORIDE 0.9% 500 ML INFUS.BAG IV STA (06:53)
[2024-06-29 07:14] LABS: BASO % 0.3 % (0-2.0); EOS % 0.1 % (0-4.5); HEMATOCRIT 35.3 % (35.4-49); HEMOGLOBIN 11.6 GM/dL (11.7-16.9); LYMPH % 11.6 % (8-40); MCH 32.4 pg (25.7-33.7); MCHC 32.7 g/dl (32.0-35.9); MEAN CELL VOLUME 98.9 fl (80-96); MEAN PLT VOLUME 8.8 fl (7.5-11.1); MONO % 10.6 % (3.8-10.2); NEUT % 77.4 % (42.8-82.8); PLATELET COUNT 345 10^3/uL (134-434); RBC 3.58 M/mm3 (4.00-5.60); RDW 15.7 % (11.9-15.9)
[2024-06-29 07:27] LABS: POTASSIUM 4.9 mmol/L (3.5-5.1)
[2024-06-29 07:31] LABS: ALBUMIN 2.7 g/dl (3.4-5.0); BLOOD UREA NITROGEN 8.3 mg/dL (7-18)
[2024-06-29 07:34] LABS: PHOSPHOROUS 3.8 mg/dL (2.5-4.9)
[2024-06-29 07:35] LABS: BILIRUBIN,TOTAL 0.5 mg/dL (0.2-1)
[2024-06-29 07:36] LABS: TOT PROT 8.5 g/dl (6.4-8.2)
[2024-06-29] MEDS: BICTEGRAV/EMTRICIT/TENOFOV (BIKTARVY) 50-200-25 MG TABLET PO SCH (09:36)
[2024-06-29] MEDS: levETIRAcetam 500 MG/5 ML INJECTION VIAL IVPB SCH (09:58)
[2024-06-29] MEDS ORDERED: levETIRAcetam 500 MG/5 ML INJECTION VIAL IVPB SCH (10:00)
[2024-06-29] MEDS: ACETAMINOPHEN 1000 MG/100 ML BAG IVPB PRN (10:13)
[2024-06-29] MEDS ORDERED: VALPROATE SODIUM IVPB SCH (11:00)
[2024-06-29] MEDS ORDERED: WATER IVPB SCH (11:00)
[2024-06-29] MEDS ORDERED: DEXTROSE 5% IVPB SCH (11:00)
[2024-06-29] MEDS: SODIUM CHLORIDE 1,000 ML IV SCH (12:21)
[2024-06-29] MEDS: VALPROATE SODIUM IVPB SCH (14:04)
[2024-06-29] MEDS: SODIUM CHLORIDE IVPB SCH (14:04)
[2024-06-29] MEDS: LORazepam 2 MG/ML SDV VIAL IVPUSH SCH (15:00)
[2024-06-29] MEDS: SODIUM CHLORIDE 500 ML IV STA (16:29)
[2024-06-29] MEDS ORDERED: INSULIN ASPART SLIDING SCALE (NOVOLOG) 1 VIAL SQ ONE (18:23)
[2024-06-29] MEDS: PIPERACILLIN/TAZOB 3.375 GM 50 ML IVPB SCH (19:07)
[2024-06-30 05:43] LABS: CALCIUM 8.1 mg/dL (8.5-10.1)
[2024-06-30 05:44] LABS: BLOOD UREA NITROGEN 10.2 mg/dL (7-18); HEMATOCRIT 29.2 % (35.4-49); HEMOGLOBIN 9.4 GM/dL (11.7-16.9); MAGNESIUM 1.8 mg/dL (1.8-2.4); MCHC 32.3 g/dl (32.0-35.9); MEAN PLT VOLUME 8.8 fl (7.5-11.1); PLATELET COUNT 300 10^3/uL (134-434); RBC 2.94 M/mm3 (4.00-5.60); RDW 15.5 % (11.9-15.9)
[2024-06-30 05:47] LABS: CREATININE 0.9 mg/dL (0.55-1.3)
[2024-06-30 05:48] LABS: BILIRUBIN,TOTAL 0.4 mg/dL (0.2-1)
[2024-06-30 07:37] LABS: ANISOCYTOSIS 1+; MACROCYTOSIS 0
[2024-06-30] MEDS ORDERED: NOREPINEPHRINE BITARTRATE 4 MG/4 ML ML IV ONE (12:52)
[2024-06-30] MEDS ORDERED: ESMOLOL HCL 100,000 MCG/10 ML VIAL ONE (12:57)
[2024-06-30] MEDS ORDERED: MIDAZOLAM HCL 2 MG/2 ML SINGLE DOSE VIAL ONE (12:59)
[2024-06-30] MEDS ORDERED: BUPIVACAINE HCL/PF 0.25% (2.5MG/ML) 10 ML VIAL ONE (13:36)
[2024-06-30] MEDS ORDERED: ETOMIDATE 20 MG/10 ML VIAL IVPUSH ONE (14:20)
[2024-06-30] MEDS ORDERED: ACETAMINOPHEN 1000 MG/100 ML BAG IVPB PRN (21:49)
[2024-07-01 06:33] LABS: BASO % 0.2 % (0-2.0); EOS % 1.3 % (0-4.5); HEMATOCRIT 27.5 % (35.4-49); HEMOGLOBIN 8.8 GM/dL (11.7-16.9); LYMPH % 12.7 % (8-40); MCH 31.6 pg (25.7-33.7); MCHC 31.9 g/dl (32.0-35.9); MEAN PLT VOLUME 8.5 fl (7.5-11.1); NEUT % 70.8 % (42.8-82.8); PLATELET COUNT 244 10^3/uL (134-434); RBC 2.78 M/mm3 (4.00-5.60); RDW 15.1 % (11.9-15.9); WHITE BLOOD COUNT 12.1 K/mm3 (4.0-10.0)
[2024-07-01 07:02] LABS: POTASSIUM 3.5 mmol/L (3.5-5.1)
[2024-07-01 07:04] LABS: CALCIUM 7.8 mg/dL (8.5-10.1)
[2024-07-01 07:05] LABS: ALBUMIN 1.8 g/dl (3.4-5.0); BLOOD UREA NITROGEN 6.9 mg/dL (7-18); MAGNESIUM 1.8 mg/dL (1.8-2.4)
[2024-07-01 07:08] LABS: CREATININE 0.6 mg/dL (0.55-1.3)
[2024-07-01 07:09] LABS: BILIRUBIN,TOTAL 0.4 mg/dL (0.2-1)
[2024-07-01 07:10] LABS: TOT PROT 6.3 g/dl (6.4-8.2)
[2024-07-01] MEDS: SODIUM CHLORIDE 1,000 ML IV SCH (11:19)
[2024-07-01] MEDS: AMINO ACIDS 4.25%/D5W 1,000 ML IV SCH (11:33)
[2024-07-01 14:28] LABS: PHOSPHOROUS 3.4 mg/dL (2.5-4.9)
[2024-07-02 07:08] LABS: BASO % 1.2 % (0-2.0); EOS % 1.4 % (0-4.5); HEMATOCRIT 25.3 % (35.4-49); HEMOGLOBIN 8.4 GM/dL (11.7-16.9); LYMPH % 16.5 % (8-40); MCH 32.4 pg (25.7-33.7); MCHC 33.2 g/dl (32.0-35.9); MEAN CELL VOLUME 97.5 fl (80-96); MEAN PLT VOLUME 8.7 fl (7.5-11.1); MONO % 12.5 % (3.8-10.2); NEUT % 68.4 % (42.8-82.8); PLATELET COUNT 243 10^3/uL (134-434); RDW 14.9 % (11.9-15.9); WHITE BLOOD COUNT 10.9 K/mm3 (4.0-10.0)
[2024-07-02 07:22] LABS: POTASSIUM 3.1 mmol/L (3.5-5.1)
[2024-07-02 07:26] LABS: CALCIUM 7.6 mg/dL (8.5-10.1)
[2024-07-02 07:27] LABS: ALBUMIN 1.6 g/dl (3.4-5.0); MAGNESIUM 1.7 mg/dL (1.8-2.4)
[2024-07-02 07:30] LABS: CREATININE 0.6 mg/dL (0.55-1.3)
[2024-07-02 07:31] LABS: BILIRUBIN,TOTAL 0.4 mg/dL (0.2-1); TOT PROT 5.8 g/dl (6.4-8.2)
[2024-07-02] MEDS: MAGNESIUM 2GM/50ML STERILE WATER IVPB IVPB ONE (09:06)
[2024-07-02] MEDS: KCL 20 MEQ PREMIX BAG 20 MEQ/100 ML INFUS.BAG IVPB ONE (09:07)
[2024-07-02] MEDS: ENOXAPARIN NA (PORCINE) 40 MG/0.4 ML DISP.SYRIN SQ SCH (09:57)
[2024-07-02] MEDS: POTASSIUM CHLORIDE ORAL LIQUID 20 MEQ/15 ML PO SCH (12:07)
[2024-07-02 15:51] VITALS: BMI 30.2
[2024-07-02] MEDS ORDERED: POTASSIUM CHLORIDE ORAL LIQUID 20 MEQ/15 ML PO SCH (16:00)
[2024-07-02 17:07] LABS: HIV INTERPRETATION PRESUMPTIVE POSITIVE (NEGATIVE)
[2024-07-02] MEDS: AMINO ACIDS/PROTEIN HYDROLYS 30 ML LIQUID.PKT PO SCH (17:54)
[2024-07-02] MEDS: PIPERACILLIN/TAZOB 3.375 GM 50 ML IVPB SCH (20:42)
[2024-07-02] MEDS: SODIUM CHLORIDE 1,000 ML IV SCH (20:42)
[2024-07-02] MEDS: PANTOPRAZOLE SODIUM 40 MG VIAL IVPUSH SCH (21:50)
[2024-07-02] MEDS: levETIRAcetam 500 MG/5 ML INJECTION VIAL IVPB SCH (21:50)
[2024-07-02] MEDS: VALPROATE SODIUM IVPB SCH (21:51)
[2024-07-02] MEDS: LORazepam 2 MG/ML SDV VIAL IVPUSH SCH (21:51)
[2024-07-02] MEDS: SODIUM CHLORIDE IVPB SCH (21:51)
[2024-07-02] MEDS ORDERED: CHLORHEXIDINE GLUCONATE 4% CLEANSER FOR DECOLONIZATION TP SCH (22:00)
[2024-07-02] MEDS ORDERED: MUPIROCIN 2% TOPICAL OINTMENT FOR DECOLONIZATION NS SCH (22:00)
[2024-07-03] MEDS: PIPERACILLIN/TAZOB 3.375 GM 3.375 GM in DEXTROSE 5%-WATER - 50 ML IVPB SCH ×2 (08:31→08:39)
[2024-07-03] MEDS: VANCOMYCIN/WATER 1250 MG 1,250 MG/250 ML BAG IVPB SCH (08:32)
[2024-07-03] MEDS: BICTEGRAV/EMTRICIT/TENOFOV (BIKTARVY) 50-200-25 MG TABLET PO SCH (08:36)
[2024-07-03] MEDS: VALPROATE SODIUM 500 MG/5 ML VIAL IVPB SCH (08:39)
[2024-07-03] MEDS: ENOXAPARIN NA (PORCINE) 40 MG/0.4 ML DISP.SYRIN SQ SCH (10:47)
[2024-07-03] MEDS: MAGNESIUM 2GM/50ML STERILE WATER IVPB IVPB ONE (12:23)
[2024-07-03 12:50] LABS: BASO % 0.9 % (0-2.0); EOS % 2.1 % (0-4.5); HEMATOCRIT 24.9 % (35.4-49); HEMOGLOBIN 8.2 GM/dL (11.7-16.9); LYMPH % 19.8 % (8-40); MCH 31.8 pg (25.7-33.7); MCHC 32.9 g/dl (32.0-35.9); MEAN CELL VOLUME 96.4 fl (80-96); MEAN PLT VOLUME 8.3 fl (7.5-11.1); NEUT % 60.2 % (42.8-82.8); PLATELET COUNT 261 10^3/uL (134-434); RBC 2.59 M/mm3 (4.00-5.60); RDW 14.9 % (11.9-15.9); WHITE BLOOD COUNT 8.8 K/mm3 (4.0-10.0)
[2024-07-03 13:14] LABS: ALBUMIN 1.7 g/dl (3.4-5.0); BLOOD UREA NITROGEN 5.6 mg/dL (7-18); CALCIUM 7.9 mg/dL (8.5-10.1)
[2024-07-03 13:18] LABS: CREATININE 0.7 mg/dL (0.55-1.3)
[2024-07-03 13:19] LABS: BILIRUBIN,TOTAL 0.3 mg/dL (0.2-1); TOT PROT 6.3 g/dl (6.4-8.2)
[2024-07-03] MEDS: POTASSIUM CHLORIDE ORAL LIQUID 20 MEQ/15 ML PO SCH (14:51)
[2024-07-04] MEDS: ACETAMINOPHEN 1000 MG/100 ML BAG IVPB ONE (00:51)
[2024-07-04 09:40] LABS: BASO % 0.3 % (0-2.0); EOS % 3.7 % (0-4.5); HEMATOCRIT 25.9 % (35.4-49); HEMOGLOBIN 8.4 GM/dL (11.7-16.9); MCH 31.9 pg (25.7-33.7); MCHC 32.5 g/dl (32.0-35.9); MEAN CELL VOLUME 98.1 fl (80-96); MEAN PLT VOLUME 8.1 fl (7.5-11.1); MONO % 19.4 % (3.8-10.2); NEUT % 53.6 % (42.8-82.8); PLATELET COUNT 257 10^3/uL (134-434); RBC 2.64 M/mm3 (4.00-5.60); RDW 15.1 % (11.9-15.9); WHITE BLOOD COUNT 7.6 K/mm3 (4.0-10.0)
[2024-07-04 09:59] LABS: POTASSIUM 3.6 mmol/L (3.5-5.1)
[2024-07-04 10:05] LABS: ALBUMIN 1.7 g/dl (3.4-5.0); BLOOD UREA NITROGEN 6.4 mg/dL (7-18); CALCIUM 7.9 mg/dL (8.5-10.1); MAGNESIUM 2.4 mg/dL (1.8-2.4)
[2024-07-04 10:08] LABS: CREATININE 0.7 mg/dL (0.55-1.3)
[2024-07-04 10:09] LABS: PHOSPHOROUS 2.9 mg/dL (2.5-4.9)
[2024-07-04 10:10] LABS: BILIRUBIN,TOTAL 0.2 mg/dL (0.2-1); TOT PROT 6.1 g/dl (6.4-8.2)
[2024-07-05] MEDS: ACETAMINOPHEN 1000 MG/100 ML BAG IVPB ONE (06:13)
[2024-07-05 09:18] LABS: BASO % 1.1 % (0-2.0); EOS % 2.5 % (0-4.5); HEMATOCRIT 24.1 % (35.4-49); LYMPH % 27.1 % (8-40); MCH 32.1 pg (25.7-33.7); MEAN CELL VOLUME 97.3 fl (80-96); MEAN PLT VOLUME 8.3 fl (7.5-11.1); MONO % 14.3 % (3.8-10.2); PLATELET COUNT 283 10^3/uL (134-434); RBC 2.48 M/mm3 (4.00-5.60); RDW 15.5 % (11.9-15.9); WHITE BLOOD COUNT 8.2 K/mm3 (4.0-10.0)
[2024-07-05 09:35] LABS: POTASSIUM 3.8 mmol/L (3.5-5.1)
[2024-07-05 09:39] LABS: ALBUMIN 1.7 g/dl (3.4-5.0); BLOOD UREA NITROGEN 6.1 mg/dL (7-18)
[2024-07-05 09:40] LABS: CALCIUM 7.7 mg/dL (8.5-10.1)
[2024-07-05 09:42] LABS: CREATININE 0.7 mg/dL (0.55-1.3)
[2024-07-05 09:44] LABS: BILIRUBIN,TOTAL 0.1 mg/dL (0.2-1); TOT PROT 6.3 g/dl (6.4-8.2)
[2024-07-05] MEDS: ARTIFICIAL TEARS OPHTHALMIC DROPS OU PRN (10:01)
[2024-07-05 13:43] LABS: EPI CELLS 1 /uL (0-25.1); HYALINE CASTS 0 /uL (0-3.1); URINE APPEARANCE CLEAR; URINE BACTERIA 17 /uL (0-1359); URINE BILIRUBIN NEGATIVE (NEGATIVE); URINE COLOR YELLOW; URINE GLUCOSE (UA) NEGATIVE (NEGATIVE); URINE KETONE NEGATIVE (NEGATIVE); URINE LEUK ESTERASE TRACE (NEGATIVE); URINE NITRITE NEGATIVE (NEGATIVE); URINE PROTEIN NEGATIVE (NEGATIVE); URINE RBC 4 /uL (0-23.9); URINE WBC 5 /uL (0-25.8)
[2024-07-06] MEDS: DEXTROSE 5%-NORMAL SALINE 1,000 ML IV SCH (06:06)
[2024-07-07 10:46] LABS: POTASSIUM 4.2 mmol/L (3.5-5.1)
[2024-07-07 10:54] LABS: BASO % 0.5 % (0-2.0); EOS % 0.7 % (0-4.5); HEMATOCRIT 27.5 % (35.4-49); LYMPH % 29.2 % (8-40); MCH 32.3 pg (25.7-33.7); MCHC 32.8 g/dl (32.0-35.9); MEAN CELL VOLUME 98.3 fl (80-96); MEAN PLT VOLUME 9.6 fl (7.5-11.1); MONO % 11.5 % (3.8-10.2); NEUT % 58.1 % (42.8-82.8); PLATELET COUNT 171 10^3/uL (134-434); RDW 15.3 % (11.9-15.9); WHITE BLOOD COUNT 7.6 K/mm3 (4.0-10.0)
[2024-07-07 10:55] LABS: ALBUMIN 1.7 g/dl (3.4-5.0); BLOOD UREA NITROGEN 6.9 mg/dL (7-18); CALCIUM 8.3 mg/dL (8.5-10.1); MAGNESIUM 2.1 mg/dL (1.8-2.4)
[2024-07-07 10:58] LABS: CREATININE 0.7 mg/dL (0.55-1.3); PHOSPHOROUS 3.7 mg/dL (2.5-4.9)
[2024-07-07 11:00] LABS: BILIRUBIN,TOTAL 0.2 mg/dL (0.2-1); TOT PROT 6.7 g/dl (6.4-8.2)
[2024-07-08 10:07] LABS: CHLORIDE 106 mmol/L (98-107); POTASSIUM 3.7 mmol/L (3.5-5.1); SODIUM 143 mmol/L (136-145)
[2024-07-08 10:36] LABS: CALCIUM 8.4 mg/dL (8.5-10.1)
[2024-07-08 10:38] LABS: ALBUMIN 1.8 g/dl (3.4-5.0); ANION GAP 7 mmol/L (4-13); CO2 29 mmol/L (21-32); GLUCOSE,RANDOM 87 mg/dL (74-106); MAGNESIUM 2.3 mg/dL (1.8-2.4)
[2024-07-08 10:39] LABS: CREATININE 0.7 mg/dL (0.55-1.3)
[2024-07-08 10:40] LABS: PHOSPHOROUS 3.3 mg/dL (2.5-4.9); SGOT/AST 15 U/L (15-37)
[2024-07-08 10:41] LABS: BILIRUBIN,TOTAL 0.2 mg/dL (0.2-1); TOT PROT 6.8 g/dl (6.4-8.2)
[2024-07-08 10:43] LABS: ALK PHOS 43 U/L (45-117); HEMATOCRIT 24.9 % (35.4-49); HEMOGLOBIN 8.3 GM/dL (11.7-16.9); MCH 32.2 pg (25.7-33.7); MCHC 33.2 g/dl (32.0-35.9); MEAN CELL VOLUME 97.1 fl (80-96); MEAN PLT VOLUME 7.8 fl (7.5-11.1); PLATELET COUNT 447 10^3/uL (134-434); RBC 2.57 M/mm3 (4.00-5.60); RDW 15.5 % (11.9-15.9); WHITE BLOOD COUNT 6.8 K/mm3 (4.0-10.0)
[2024-07-08 10:51] LABS: SGPT/ALT < 6 U/L (13-61)
[2024-07-08] MEDS ORDERED: FENTANYL CITRATE/PF 50 MCG/ML VIAL ONE ×3 (12:06→13:03)
[2024-07-08] MEDS ORDERED: MIDAZOLAM HCL 2 MG/2 ML SINGLE DOSE VIAL ONE (12:06)
[2024-07-08] MEDS ORDERED: GLUCAGON 1 MG KIT ONE (12:07)
[2024-07-08] MEDS: GLUCAGON 1 MG KIT IVPUSH ONE (12:46)
[2024-07-08] MEDS: FENTANYL CITRATE/PF 50 MCG/ML VIAL IVPUSH ONE ×3 (12:48→13:03)
[2024-07-08 13:09] LABS: ANISOCYTOSIS 1+; MACROCYTOSIS 0
[2024-07-08] MEDS: ACETAMINOPHEN 1000 MG/100 ML BAG IVPB PRN (22:16)
[2024-07-09 09:42] LABS: BASO % 0.5 % (0-2.0); HEMATOCRIT 26.4 % (35.4-49); HEMOGLOBIN 8.9 GM/dL (11.7-16.9); LYMPH % 22.8 % (8-40); MCH 32.3 pg (25.7-33.7); MCHC 33.7 g/dl (32.0-35.9); MEAN PLT VOLUME 7.6 fl (7.5-11.1); MONO % 14.4 % (3.8-10.2); NEUT % 61.3 % (42.8-82.8); PLATELET COUNT 547 10^3/uL (134-434); RBC 2.75 M/mm3 (4.00-5.60); RDW 15.2 % (11.9-15.9); WHITE BLOOD COUNT 10.1 K/mm3 (4.0-10.0)
[2024-07-09 09:56] LABS: POTASSIUM 3.7 mmol/L (3.5-5.1)
[2024-07-09 10:04] LABS: ALBUMIN 1.9 g/dl (3.4-5.0); BLOOD UREA NITROGEN 4.2 mg/dL (7-18); CALCIUM 8.3 mg/dL (8.5-10.1)
[2024-07-09 10:05] LABS: CREATININE 0.7 mg/dL (0.55-1.3)
[2024-07-09 10:07] LABS: BILIRUBIN,TOTAL 0.2 mg/dL (0.2-1)
[2024-07-09 10:12] LABS: TOT PROT 7.2 g/dl (6.4-8.2)
[2024-07-10 06:21] VITALS: BP 114/70; TEMP 98.8
[2024-07-10 07:47] VITALS: RESP 12
[2024-07-10 07:48] VITALS: PULSE 82
[2024-07-10] MEDS ORDERED: DEXTROSE 5%-NORMAL SALINE 1,000 ML IV SCH (08:09)
[2024-07-10 09:40] LABS: HEMATOCRIT 23.7 % (35.4-49); HEMOGLOBIN 7.9 GM/dL (11.7-16.9); MCH 32.2 pg (25.7-33.7); MCHC 33.4 g/dl (32.0-35.9); MEAN CELL VOLUME 96.2 fl (80-96); MEAN PLT VOLUME 7.4 fl (7.5-11.1); PLATELET COUNT 579 10^3/uL (134-434); RBC 2.46 M/mm3 (4.00-5.60); RDW 15.5 % (11.9-15.9)
[2024-07-10 09:46] LABS: POTASSIUM 3.9 mmol/L (3.5-5.1)
[2024-07-10 10:03] LABS: ALBUMIN 1.8 g/dl (3.4-5.0); BLOOD UREA NITROGEN 5.8 mg/dL (7-18); CALCIUM 8.1 mg/dL (8.5-10.1); MAGNESIUM 1.9 mg/dL (1.8-2.4)
[2024-07-10 10:05] LABS: CREATININE 0.7 mg/dL (0.55-1.3)
[2024-07-10 10:07] LABS: BILIRUBIN,TOTAL 0.2 mg/dL (0.2-1); PHOSPHOROUS 3.5 mg/dL (2.5-4.9); TOT PROT 6.6 g/dl (6.4-8.2)
[2024-07-10 10:23] LABS: ANISOCYTOSIS 0; HELMET CELLS 0; HOWELL-JOLLY BODIES 0; MACROCYTOSIS 0; OVALOCYTE 0; ROULEAU 0; SICKELED CELLS 0; TARGET CELLS 0; TEAR DROP CELLS 0; TOXIC GRANULATION 0
== END 2024-07-10 11:05 | DRG 710 ==
LOC: JER 13:01 → JERBED 16:33 → JICU 19:41 → J5S 07-02 14:45
PROVIDERS: ADMIT Internal Medicine Pulmonary Disease; ATTEND Internal Medicine
PROC: 05HN33Z Insertion of Infusion Device into Left Internal Jugular Vein, Percutaneous Approach (ICD-10-PCS; principal; 2024-06-28)
PROC: 0DP6XUZ Removal of Feeding Device from Stomach, External Approach (ICD-10-PCS; 2024-06-30)
PROC: 0W9H00Z Drainage of Retroperitoneum with Drainage Device, Open Approach (ICD-10-PCS; 2024-06-30 12:00)
PROC: 0DH63UZ Insertion of Feeding Device into Stomach, Percutaneous Approach (ICD-10-PCS; 2024-07-08)
PROC: BD12ZZZ Fluoroscopy of Stomach (ICD-10-PCS; 2024-07-08)
PROC: 5A1955Z Respiratory Ventilation, Greater than 96 Consecutive Hours (ICD-10-PCS; 2024-07-09)
DX: A41.89 Other specified sepsis (principal); R65.21 Severe sepsis with septic shock; J44.9 Chronic obstructive pulmonary disease, unspecified; Z21 Asymptomatic human immunodeficiency virus [HIV] infection status; E11.9 Type 2 diabetes mellitus without complications; K21.9 Gastro-esophageal reflux disease without esophagitis; G40.909 Epilepsy, unspecified, not intractable, without status epilepticus; J44.1 Chronic obstructive pulmonary disease with (acute) exacerbation; R00.0 Tachycardia, unspecified; B19.20 Unspecified viral hepatitis C without hepatic coma; N31.9 Neuromuscular dysfunction of bladder, unspecified; N48.89 Other specified disorders of penis; K65.1 Peritoneal abscess; B95.2 Enterococcus as the cause of diseases classified elsewhere; B96.5 Pseudomonas (aeruginosa) (mallei) (pseudomallei) as the cause of diseases classified elsewhere; F39 Unspecified mood [affective] disorder; R11.2 Nausea with vomiting, unspecified; R50.9 Fever, unspecified; F20.9 Schizophrenia, unspecified; E87.20 Acidosis, unspecified; T85.528A Displacement of other gastrointestinal prosthetic devices, implants and grafts, initial encounter; J18.9 Pneumonia, unspecified organism; J96.11 Chronic respiratory failure with hypoxia; K56.609 Unspecified intestinal obstruction, unspecified as to partial versus complete obstruction; Z93.0 Tracheostomy status; Z85.038 Personal history of other malignant neoplasm of large intestine; Z93.3 Colostomy status; Z74.01 Bed confinement status; Y83.8 Other surgical procedures as the cause of abnormal reaction of the patient, or of later complication, without mention of misadventure at the time of the procedure
CPT/HCPCS: 0241U-QW; 36415; 49440; 71045-TC-FY; 74018-TC-FY; 74177-TC; 80053; 80177; 81003; 82803; 82962; 83605; 83735; 84100; 84460; 84484; 85025; 85027; 85610; 85730; 86803; 86850; 86900; 86901; 87040; 87070; 87077; 87086; 87186; 87205; 87340; 87389; 87481; 87522; 87536; 87635; 93005; 93010; 94002; 99291; G0480; J0131